=== PATIENT | male | born 1965 | race Asian ===

== ENCOUNTER 2022-08-25 20:06 | Inpatient (IN) | payer OTHER ==
[~2022-08-25] VITALS: Ht 167.6 cm; Wt 68.0 kg
[2022-08-25 22:00] VITALS: BP 128/77
[2022-08-25] MEDS: SENNOSIDES 8.6 MG TABLET PO SCH (22:15)
[2022-08-25] MEDS: DOCUSATE SODIUM 100 MG CAPSULE PO SCH (22:15)
[2022-08-25] MEDS: MIRTAZAPINE 15 MG TABLET PO SCH (23:00)
[2022-08-25] MEDS: LISINOPRIL 20 MG TABLET PO SCH (23:00)
[2022-08-25] MEDS: LABETALOL HCL 100 MG TABLET PO SCH (23:00)
[2022-08-25] MEDS: CloNIDine HCL 0.1 MG TABLET PO SCH (23:00)
[2022-08-25] MEDS: GABAPENTIN 100 MG CAPSULE PO SCH (23:00)
[2022-08-25] MEDS ORDERED: DEXTROSE 50%-WATER 25 GM/50 ML SYRINGE IVP PRN (23:30)
[2022-08-25] MEDS: INSULIN GLARGINE,HUM.REC.ANLOG 100 UNITS/ML SQ SCH (23:41)
[2022-08-25] MEDS: INSULIN LISPRO 100 UNITS/ML SQ PRN (23:42)
[2022-08-26] MEDS: HYDROCODONE/ACETAMINOPHEN 5-325 MG TABLET PO PRN ×2 (00:33→22:59)
[2022-08-26] MEDS: MELATONIN 5 MG TABLET PO PRN ×2 (00:36→21:41)
[2022-08-26 03:31] LABS: GLUCOMETER DEV NAME(LOC) 2WR.2B; GLUCOSE,POINT OF CARE 158 MG/DL (70-110)
[2022-08-26] MEDS ORDERED: INFLUENZA VIRUS VACCINE QVS 2022-23 (6MO+)/PF 60 MCG/0.5 ML SYRINGE IM. ONE (06:30)
[2022-08-26 07:15] LABS: GLUCOMETER DEV NAME(LOC) 2WR.2B; GLUCOSE,POINT OF CARE 128 MG/DL (70-110)
[2022-08-26] MEDS: MetFORMIN HCL 500 MG TABLET PO SCH ×2 (08:12→17:37)
[2022-08-26] MEDS: INSULIN LISPRO 100 UNITS/ML SQ SCH ×3 (08:15→17:36)
[2022-08-26] MEDS: INSULIN GLARGINE,HUM.REC.ANLOG 100 UNITS/ML SQ SCH ×2 (08:18→21:17)
[2022-08-26] MEDS: CloNIDine HCL 0.1 MG TABLET PO SCH ×2 (08:19→21:06)
[2022-08-26] MEDS: LISINOPRIL 20 MG TABLET PO SCH ×2 (08:19→21:06)
[2022-08-26] MEDS: DOCUSATE SODIUM 100 MG CAPSULE PO SCH ×2 (08:19→21:06)
[2022-08-26] MEDS: POLYETHYLENE GLYCOL 3350 17 GM PACKET PO SCH (08:19)
[2022-08-26] MEDS: GABAPENTIN 100 MG CAPSULE PO SCH ×3 (08:19→21:06)
[2022-08-26] MEDS: FOLIC ACID 1 MG TABLET PO SCH (08:25)
[2022-08-26] MEDS: NIFEdipine 90 MG ER TABLET PO SCH (08:25)
[2022-08-26] MEDS: LABETALOL HCL 100 MG TABLET PO SCH ×2 (08:26→21:19)
[2022-08-26] MEDS: ETHYL ALCOHOL 62% ANTISEPTIC NASAL SANITIZER 0.6 ML AMPUL NASAL SCH ×2 (08:26→21:07)
[2022-08-26] MEDS: THIAMINE 100 MG TABLET PO SCH (08:26)
[2022-08-26] MEDS ORDERED: LIDOCAINE 5% TRANSDERMAL PATCH TD SCH ×3 (09:00)
[2022-08-26] MEDS ORDERED: COLCHICINE 0.6 MG TABLET PO SCH (09:00)
[2022-08-26 09:08] VITALS: BP 116/74
[2022-08-26 09:11] LABS: BASOPHILS % (AUTO) 0.8 % (0.0-2.0); EOSINOPHILS % (AUTO) 2.4 % (1.0-6.0); HEMATOCRIT 34.2 % (41-53); HEMOGLOBIN 10.3 g/dL (13.5-17.5); LYMPHOCYTES # (AUTO) 1.3 K/uL (1.0-4.8); LYMPHOCYTES % (AUTO) 18.3 % (22.0-44.0); MEAN CORPUSCULAR HEMOGLOBIN 21.3 pg (26.0-34.0); MEAN CORPUSCULAR HGB CONC 30.1 G/dL (31.0-37.0); MEAN CORPUSCULAR VOLUME 71 fL (80-100); MONOCYTES # (AUTO) 0.5 K/uL (0.1-1.0); MONOCYTES % (AUTO) 7.5 % (2.0-9.0); NEUTROPHILS # (AUTO) 4.9 K/uL (1.8-7.7); PLATELET COUNT (AUTO) 501 K/uL (150-450); RED BLOOD CELL COUNT(AUTO) 4.83 MIL/uL (4.50-5.90); RED CELL DISTRIBUTION WIDTH 15.7 % (11.5-14.5)
[2022-08-26 09:22] LABS: ALANINE AMINOTRANSFERASE 86 U/L (12-78); ALBUMIN 2.6 g/dL (3.4-5.0); ALKALINE PHOSPHATASE 176 U/L (46-116); ANION GAP 6 mmol/L (8-16); ASPARTATE AMINOTRANSFERASE 25 U/L (15-37); BILIRUBIN,TOTAL 0.2 mg/dL (0.1-1.0); CALCIUM, TOTAL 9.2 mg/dL (8.8-10.5); CARBON DIOXIDE 31 mmol/L (22-29); CHLORIDE 100 mmol/L (98-107); CREATININE 1.06 mg/dL (0.60-1.30); GLOMERULAR FILTR. RATE CALC > 60 mL/min (>60); GLUCOSE,RANDOM 253 mg/dL (70-110); POTASSIUM 4.3 mmol/L (3.5-5.1); SODIUM SERUM 137 mmol/L (136-145); TOTAL PROTEIN, SERUM 7.2 g/dL (6.4-8.2); UREA NITROGEN, BLOOD 28 mg/dL (7-18)
[2022-08-26] MEDS: FEBUXOSTAT 40 MG TABLET PO SCH (11:56)
[2022-08-26] MEDS: DICLOFENAC SODIUM 1% 100 GM GEL [2GM] TP SCH ×3 (12:06→21:18)
[2022-08-26] MEDS: INSULIN LISPRO 100 UNITS/ML SQ PRN (12:14)
[2022-08-26 14:56] LABS: GLUCOMETER DEV NAME(LOC) 2WR.2B; GLUCOSE,POINT OF CARE 142 MG/DL (70-110)
[2022-08-26] MEDS ORDERED: DICLOFENAC SODIUM 1% 100 GM GEL [2GM] TP SCH (16:00)
[2022-08-26] MEDS ORDERED: -LIDODERM PATCH NOTE- MISC SCH ×3 (21:00)
[2022-08-26 21:01] VITALS: BP 127/62
[2022-08-26] MEDS: COLCHICINE 0.6 MG TABLET PO SCH (21:06)
[2022-08-26] MEDS: SENNOSIDES 8.6 MG TABLET PO SCH (21:06)
[2022-08-26] MEDS: MIRTAZAPINE 15 MG TABLET PO SCH (21:06)
[2022-08-26 23:26] LABS: GLUCOMETER DEV NAME(LOC) 2WR.2B; GLUCOSE,POINT OF CARE 140 MG/DL (70-110)
[2022-08-27 05:16] LABS: GLUCOMETER DEV NAME(LOC) 2WR.1C; GLUCOSE,POINT OF CARE 121 MG/DL (70-110)
[2022-08-27 07:40] VITALS: BP 102/66
[2022-08-27 08:01] LABS: GLUCOMETER DEV NAME(LOC) 2WR.1C; GLUCOSE,POINT OF CARE 121 MG/DL (70-110)
[2022-08-27] MEDS: INSULIN LISPRO 100 UNITS/ML SQ SCH ×3 (08:03→17:28)
[2022-08-27] MEDS: MetFORMIN HCL 500 MG TABLET PO SCH ×2 (08:29→17:26)
[2022-08-27] MEDS: ETHYL ALCOHOL 62% ANTISEPTIC NASAL SANITIZER 0.6 ML AMPUL NASAL SCH ×2 (08:30→22:37)
[2022-08-27] MEDS: DOCUSATE SODIUM 100 MG CAPSULE PO SCH ×3 (08:31→20:26)
[2022-08-27] MEDS: COLCHICINE 0.6 MG TABLET PO SCH ×2 (08:31→20:27)
[2022-08-27] MEDS: FOLIC ACID 1 MG TABLET PO SCH (08:31)
[2022-08-27] MEDS: POLYETHYLENE GLYCOL 3350 17 GM PACKET PO SCH ×2 (08:32→08:39)
[2022-08-27] MEDS: THIAMINE 100 MG TABLET PO SCH (08:33)
[2022-08-27] MEDS: GABAPENTIN 100 MG CAPSULE PO SCH ×3 (08:33→20:27)
[2022-08-27] MEDS: FEBUXOSTAT 40 MG TABLET PO SCH (08:33)
[2022-08-27] MEDS: DICLOFENAC SODIUM 1% 100 GM GEL [2GM] TP SCH ×3 (08:34→20:31)
[2022-08-27] MEDS: NIFEdipine 90 MG ER TABLET PO SCH (08:39)
[2022-08-27] MEDS: CloNIDine HCL 0.1 MG TABLET PO SCH ×2 (09:00→20:26)
[2022-08-27] MEDS: LABETALOL HCL 100 MG TABLET PO SCH ×2 (09:00→20:27)
[2022-08-27] MEDS: INSULIN GLARGINE,HUM.REC.ANLOG 100 UNITS/ML SQ SCH ×2 (09:09→20:46)
[2022-08-27 10:05] VITALS: BP 90/57
[2022-08-27] MEDS ORDERED: COLCHICINE 0.6 MG TABLET PO ONE (10:45)
[2022-08-27 11:56] LABS: GLUCOMETER DEV NAME(LOC) 2WR.1C; GLUCOSE,POINT OF CARE 185 MG/DL (70-110)
[2022-08-27] MEDS: INSULIN LISPRO 100 UNITS/ML SQ PRN ×2 (12:24→17:29)
[2022-08-27] MEDS: FAMOTIDINE 20 MG TABLET PO SCH (17:01)
[2022-08-27] MEDS: HYDROCODONE/ACETAMINOPHEN 5-325 MG TABLET PO PRN ×2 (18:06→22:35)
[2022-08-27 20:19] VITALS: BP 123/65
[2022-08-27] MEDS: SENNOSIDES 8.6 MG TABLET PO SCH (20:26)
[2022-08-27] MEDS ORDERED: MIRTAZAPINE 15 MG TABLET PO SCH (21:00)
[2022-08-27 21:41] LABS: GLUCOMETER DEV NAME(LOC) 2WR.1C; GLUCOSE,POINT OF CARE 111 MG/DL (70-110)
[2022-08-28] MEDS: FAMOTIDINE 20 MG TABLET PO SCH ×2 (05:59→16:30)
[2022-08-28] MEDS: HYDROCODONE/ACETAMINOPHEN 5-325 MG TABLET PO PRN ×3 (05:59→16:47)
[2022-08-28 06:46] LABS: GLUCOMETER DEV NAME(LOC) 2WR.1C; GLUCOSE,POINT OF CARE 95 MG/DL (70-110)
[2022-08-28 06:55] LABS: ANION GAP 8 mmol/L (8-16); C-REACTIVE PROTEIN QUANT 0.88 mg/dL (0.00-0.30); CALCIUM, TOTAL 9.4 mg/dL (8.8-10.5); CARBON DIOXIDE 29 mmol/L (22-29); CHLORIDE 103 mmol/L (98-107); CREATININE 1.11 mg/dL (0.60-1.30); GLUCOSE,RANDOM 110 mg/dL (70-110); POTASSIUM 3.9 mmol/L (3.5-5.1); SODIUM SERUM 140 mmol/L (136-145); UREA NITROGEN, BLOOD 31 mg/dL (7-18)
[2022-08-28] MEDS: INSULIN LISPRO 100 UNITS/ML SQ SCH ×3 (07:00→17:36)
[2022-08-28 07:05] LABS: % IRON SATURATION 14.8 % (30-44); IRON, SERUM 47 mcg/dL (50-175); TOTAL IRON BINDING CAPACITY 317 mcg/dL (250-450)
[2022-08-28 07:20] LABS: GLOMERULAR FILTR. RATE CALC > 60 mL/min (>60)
[2022-08-28 08:00] VITALS: BP 127/70
[2022-08-28] MEDS: INSULIN GLARGINE,HUM.REC.ANLOG 100 UNITS/ML SQ SCH (09:19)
[2022-08-28] MEDS: MetFORMIN HCL 500 MG TABLET PO SCH ×2 (09:23→16:47)
[2022-08-28] MEDS: CloNIDine HCL 0.1 MG TABLET PO SCH ×2 (09:23→20:44)
[2022-08-28] MEDS: ETHYL ALCOHOL 62% ANTISEPTIC NASAL SANITIZER 0.6 ML AMPUL NASAL SCH ×2 (09:23→20:42)
[2022-08-28] MEDS: DOCUSATE SODIUM 100 MG CAPSULE PO SCH ×2 (09:24→20:27)
[2022-08-28] MEDS: POLYETHYLENE GLYCOL 3350 17 GM PACKET PO SCH (09:24)
[2022-08-28] MEDS: FOLIC ACID 1 MG TABLET PO SCH (09:24)
[2022-08-28] MEDS: COLCHICINE 0.6 MG TABLET PO SCH ×2 (09:24→20:42)
[2022-08-28] MEDS: LABETALOL HCL 100 MG TABLET PO SCH ×2 (09:25→20:43)
[2022-08-28] MEDS: FEBUXOSTAT 40 MG TABLET PO SCH (09:25)
[2022-08-28] MEDS: GABAPENTIN 100 MG CAPSULE PO SCH (09:25)
[2022-08-28] MEDS: NIFEdipine 90 MG ER TABLET PO SCH (09:25)
[2022-08-28] MEDS: DICLOFENAC SODIUM 1% 100 GM GEL [2GM] TP SCH ×3 (09:26→20:43)
[2022-08-28] MEDS: LISINOPRIL 20 MG TABLET PO SCH (09:26)
[2022-08-28] MEDS: THIAMINE 100 MG TABLET PO SCH (09:26)
[2022-08-28] MEDS: INSULIN LISPRO 100 UNITS/ML SQ PRN (12:46)
[2022-08-28 13:01] LABS: GLUCOMETER DEV NAME(LOC) 2WR.2B; GLUCOSE,POINT OF CARE 173 MG/DL (70-110)
[2022-08-28] MEDS: GABAPENTIN 300 MG CAPSULE PO SCH ×2 (16:29→20:42)
[2022-08-28] MEDS: FERROUS SULFATE 325 MG EC TABLET PO SCH (16:47)
[2022-08-28 17:16] LABS: GLUCOMETER DEV NAME(LOC) 2WR.2B; GLUCOSE,POINT OF CARE 113 MG/DL (70-110)
[2022-08-28] MEDS: SENNOSIDES 8.6 MG TABLET PO SCH (20:29)
[2022-08-28] MEDS: MIRTAZAPINE 15 MG TABLET PO SCH (20:43)
[2022-08-28 21:00] VITALS: BP 99/67
[2022-08-28] MEDS ORDERED: INSULIN GLARGINE,HUM.REC.ANLOG 100 UNITS/ML SQ SCH (21:00)
[2022-08-28 21:16] LABS: GLUCOMETER DEV NAME(LOC) 2WR.2B; GLUCOSE,POINT OF CARE 89 MG/DL (70-110)
[2022-08-28] MEDS ORDERED: INDO-16 PO (22:11)
[2022-08-28] MEDS ORDERED: METF-1211 PO (22:11)
[2022-08-28] MEDS ORDERED: ATOR40TA28 PO (22:11)
[2022-08-28] MEDS ORDERED: LISI-894 PO (22:11)
[2022-08-28] MEDS ORDERED: COLC0.6T73 PO (22:11)
[2022-08-28] MEDS ORDERED: AMLO-258 PO (22:11)
[2022-08-28] MEDS: MELATONIN 5 MG TABLET PO PRN (23:49)
[2022-08-29 06:05] VITALS: BP 128/86
[2022-08-29 06:21] LABS: GLUCOMETER DEV NAME(LOC) 2WR.2B; GLUCOSE,POINT OF CARE 95 MG/DL (70-110)
[2022-08-29] MEDS: INSULIN LISPRO 100 UNITS/ML SQ SCH ×3 (07:00→17:41)
[2022-08-29] MEDS: FAMOTIDINE 20 MG TABLET PO SCH ×2 (07:03→17:49)
[2022-08-29] MEDS: DOCUSATE SODIUM 100 MG CAPSULE PO SCH ×3 (09:00→20:29)
[2022-08-29] MEDS ORDERED: INSULIN GLARGINE,HUM.REC.ANLOG 100 UNITS/ML SQ SCH (09:00)
[2022-08-29] MEDS: POLYETHYLENE GLYCOL 3350 17 GM PACKET PO SCH ×2 (09:00→09:25)
[2022-08-29] MEDS: MetFORMIN HCL 500 MG TABLET PO SCH ×2 (09:17→17:43)
[2022-08-29] MEDS: FERROUS SULFATE 325 MG EC TABLET PO SCH ×2 (09:17→17:49)
[2022-08-29] MEDS: LISINOPRIL 20 MG TABLET PO SCH (09:18)
[2022-08-29] MEDS: ETHYL ALCOHOL 62% ANTISEPTIC NASAL SANITIZER 0.6 ML AMPUL NASAL SCH ×2 (09:18→20:28)
[2022-08-29] MEDS: CloNIDine HCL 0.1 MG TABLET PO SCH ×2 (09:18→20:28)
[2022-08-29] MEDS: GABAPENTIN 300 MG CAPSULE PO SCH ×3 (09:19→20:30)
[2022-08-29] MEDS: HYDROCODONE/ACETAMINOPHEN 5-325 MG TABLET PO PRN (09:23)
[2022-08-29] MEDS: FOLIC ACID 1 MG TABLET PO SCH (09:25)
[2022-08-29] MEDS: COLCHICINE 0.6 MG TABLET PO SCH ×2 (09:26→20:30)
[2022-08-29] MEDS: NIFEdipine 90 MG ER TABLET PO SCH (09:26)
[2022-08-29] MEDS: THIAMINE 100 MG TABLET PO SCH (09:26)
[2022-08-29] MEDS: FEBUXOSTAT 40 MG TABLET PO SCH (09:26)
[2022-08-29] MEDS: LABETALOL HCL 100 MG TABLET PO SCH ×2 (09:26→20:30)
[2022-08-29] MEDS: DICLOFENAC SODIUM 1% 100 GM GEL [2GM] TP SCH ×3 (09:27→20:28)
[2022-08-29 09:30] VITALS: BP 139/93
[2022-08-29] MEDS: INSULIN GLARGINE,HUM.REC.ANLOG 100 UNITS/ML SQ SCH (10:20)
[2022-08-29] MEDS: INSULIN LISPRO 100 UNITS/ML SQ PRN ×2 (12:49→17:41)
[2022-08-29 15:11] LABS: GLUCOMETER DEV NAME(LOC) 2WR.2B; GLUCOSE,POINT OF CARE 212 MG/DL (70-110)
[2022-08-29 18:32] LABS: GLUCOMETER DEV NAME(LOC) 2WR.2B; GLUCOSE,POINT OF CARE 177 MG/DL (70-110)
[2022-08-29 20:00] VITALS: BP 124/70
[2022-08-29] MEDS: SENNOSIDES 8.6 MG TABLET PO SCH (20:30)
[2022-08-29] MEDS: MIRTAZAPINE 15 MG TABLET PO SCH (20:30)
[2022-08-29 22:21] LABS: GLUCOMETER DEV NAME(LOC) 2WR.2B; GLUCOSE,POINT OF CARE 124 MG/DL (70-110)
[2022-08-30] MEDS: MELATONIN 5 MG TABLET PO PRN ×2 (00:14→23:35)
[2022-08-30] MEDS: HYDROCODONE/ACETAMINOPHEN 5-325 MG TABLET PO PRN ×2 (01:08→08:58)
[2022-08-30] MEDS: FAMOTIDINE 20 MG TABLET PO SCH ×2 (06:41→16:48)
[2022-08-30 07:11] LABS: GLUCOMETER DEV NAME(LOC) 2WR.2B; GLUCOSE,POINT OF CARE 123 MG/DL (70-110)
[2022-08-30 07:30] LABS: ALANINE AMINOTRANSFERASE 44 U/L (12-78); ALBUMIN 2.7 g/dL (3.4-5.0); ALKALINE PHOSPHATASE 152 U/L (46-116); ANION GAP 7 mmol/L (8-16); ASPARTATE AMINOTRANSFERASE 23 U/L (15-37); BILIRUBIN,TOTAL 0.2 mg/dL (0.1-1.0); CALCIUM, TOTAL 8.9 mg/dL (8.8-10.5); CARBON DIOXIDE 30 mmol/L (22-29); CHLORIDE 106 mmol/L (98-107); CREATININE 1.02 mg/dL (0.60-1.30); GLUCOSE,RANDOM 116 mg/dL (70-110); POTASSIUM 3.9 mmol/L (3.5-5.1); SODIUM SERUM 143 mmol/L (136-145); UREA NITROGEN, BLOOD 30 mg/dL (7-18)
[2022-08-30 07:31] LABS: GLOMERULAR FILTR. RATE CALC > 60 mL/min (>60)
[2022-08-30 08:00] VITALS: BP 120/80
[2022-08-30] MEDS: CloNIDine HCL 0.1 MG TABLET PO SCH ×2 (08:38→21:40)
[2022-08-30] MEDS: GABAPENTIN 300 MG CAPSULE PO SCH ×3 (08:38→21:41)
[2022-08-30] MEDS: MetFORMIN HCL 500 MG TABLET PO SCH ×2 (08:38→17:09)
[2022-08-30] MEDS: FERROUS SULFATE 325 MG EC TABLET PO SCH ×2 (08:38→17:09)
[2022-08-30] MEDS: LISINOPRIL 20 MG TABLET PO SCH (08:39)
[2022-08-30] MEDS: DICLOFENAC SODIUM 1% 100 GM GEL [2GM] TP SCH ×3 (08:39→21:40)
[2022-08-30] MEDS: DOCUSATE SODIUM 100 MG CAPSULE PO SCH ×2 (08:39→21:00)
[2022-08-30] MEDS: NIFEdipine 90 MG ER TABLET PO SCH (08:40)
[2022-08-30] MEDS: COLCHICINE 0.6 MG TABLET PO SCH ×2 (08:40→21:41)
[2022-08-30] MEDS: POLYETHYLENE GLYCOL 3350 17 GM PACKET PO SCH (08:40)
[2022-08-30] MEDS: FOLIC ACID 1 MG TABLET PO SCH (08:40)
[2022-08-30] MEDS: FEBUXOSTAT 40 MG TABLET PO SCH (08:41)
[2022-08-30] MEDS: LABETALOL HCL 100 MG TABLET PO SCH ×2 (08:41→21:42)
[2022-08-30] MEDS: THIAMINE 100 MG TABLET PO SCH (08:41)
[2022-08-30] MEDS: ETHYL ALCOHOL 62% ANTISEPTIC NASAL SANITIZER 0.6 ML AMPUL NASAL SCH ×2 (08:43→21:40)
[2022-08-30] MEDS: INSULIN GLARGINE,HUM.REC.ANLOG 100 UNITS/ML SQ SCH (08:44)
[2022-08-30] MEDS: INSULIN LISPRO 100 UNITS/ML SQ SCH ×3 (08:46→17:35)
[2022-08-30 09:00] VITALS: BP 120/80
[2022-08-30 12:41] LABS: GLUCOMETER DEV NAME(LOC) 2WR.1C; GLUCOSE,POINT OF CARE 123 MG/DL (70-110)
[2022-08-30] MEDS: INSULIN LISPRO 100 UNITS/ML SQ PRN (17:36)
[2022-08-30 17:41] LABS: GLUCOMETER DEV NAME(LOC) 2WR.1C; GLUCOSE,POINT OF CARE 141 MG/DL (70-110)
[2022-08-30 21:00] VITALS: BP 110/64
[2022-08-30] MEDS: SENNOSIDES 8.6 MG TABLET PO SCH (21:00)
[2022-08-30] MEDS: MIRTAZAPINE 15 MG TABLET PO SCH (21:40)
[2022-08-30 23:11] LABS: GLUCOMETER DEV NAME(LOC) 2WR.1C; GLUCOSE,POINT OF CARE 126 MG/DL (70-110)
[2022-08-31] MEDS: HYDROCODONE/ACETAMINOPHEN 5-325 MG TABLET PO PRN ×3 (00:27→20:49)
[2022-08-31] MEDS: FAMOTIDINE 20 MG TABLET PO SCH ×2 (06:38→15:58)
[2022-08-31 06:56] LABS: GLUCOMETER DEV NAME(LOC) 2WR.2B; GLUCOSE,POINT OF CARE 111 MG/DL (70-110)
[2022-08-31] MEDS: MetFORMIN HCL 500 MG TABLET PO SCH ×2 (07:59→17:36)
[2022-08-31] MEDS: FERROUS SULFATE 325 MG EC TABLET PO SCH ×2 (07:59→17:41)
[2022-08-31] MEDS: INSULIN LISPRO 100 UNITS/ML SQ SCH ×3 (08:03→17:37)
[2022-08-31] MEDS: GABAPENTIN 300 MG CAPSULE PO SCH ×3 (08:29→20:45)
[2022-08-31] MEDS: CloNIDine HCL 0.1 MG TABLET PO SCH ×2 (08:29→20:45)
[2022-08-31] MEDS: ETHYL ALCOHOL 62% ANTISEPTIC NASAL SANITIZER 0.6 ML AMPUL NASAL SCH ×2 (08:29→20:45)
[2022-08-31] MEDS: LISINOPRIL 20 MG TABLET PO SCH (08:34)
[2022-08-31] MEDS: FEBUXOSTAT 40 MG TABLET PO SCH (08:34)
[2022-08-31] MEDS: THIAMINE 100 MG TABLET PO SCH (08:34)
[2022-08-31] MEDS: FOLIC ACID 1 MG TABLET PO SCH (08:35)
[2022-08-31] MEDS: DOCUSATE SODIUM 100 MG CAPSULE PO SCH ×2 (08:35→20:45)
[2022-08-31] MEDS: DICLOFENAC SODIUM 1% 100 GM GEL [2GM] TP SCH ×3 (08:35→20:45)
[2022-08-31] MEDS: LABETALOL HCL 100 MG TABLET PO SCH ×2 (08:35→20:46)
[2022-08-31] MEDS: NIFEdipine 90 MG ER TABLET PO SCH (08:35)
[2022-08-31] MEDS: COLCHICINE 0.6 MG TABLET PO SCH ×2 (08:36→20:46)
[2022-08-31] MEDS: POLYETHYLENE GLYCOL 3350 17 GM PACKET PO SCH (08:43)
[2022-08-31] MEDS: INSULIN GLARGINE,HUM.REC.ANLOG 100 UNITS/ML SQ SCH (08:48)
[2022-08-31 09:40] VITALS: BP 127/83
[2022-08-31 13:15] LABS: GLUCOMETER DEV NAME(LOC) 2WR.1C; GLUCOSE,POINT OF CARE 145 MG/DL (70-110)
[2022-08-31] MEDS: INSULIN LISPRO 100 UNITS/ML SQ PRN ×2 (13:42→21:03)
[2022-08-31] MEDS: ACETAMINOPHEN 325 MG TABLET PO PRN (15:59)
[2022-08-31 19:41] LABS: GLUCOMETER DEV NAME(LOC) 2WR.1C; GLUCOSE,POINT OF CARE 112 MG/DL (70-110)
[2022-08-31 20:41] VITALS: BP 126/73
[2022-08-31] MEDS: SENNOSIDES 8.6 MG TABLET PO SCH (20:45)
[2022-08-31] MEDS: MIRTAZAPINE 15 MG TABLET PO SCH (20:46)
[2022-08-31 21:46] LABS: GLUCOMETER DEV NAME(LOC) 2WR.2B; GLUCOSE,POINT OF CARE 198 MG/DL (70-110)
[2022-09-01] MEDS: ACETAMINOPHEN 325 MG TABLET PO PRN ×3 (01:33→15:35)
[2022-09-01] MEDS: HYDROCODONE/ACETAMINOPHEN 5-325 MG TABLET PO PRN (04:46)
[2022-09-01] MEDS: FAMOTIDINE 20 MG TABLET PO SCH ×2 (06:13→15:35)
[2022-09-01 06:56] LABS: GLUCOMETER DEV NAME(LOC) 2WR.2B; GLUCOSE,POINT OF CARE 113 MG/DL (70-110)
[2022-09-01 07:55] LABS: BASOPHILS % (AUTO) 0.8 % (0.0-2.0); EOSINOPHILS % (AUTO) 3.3 % (1.0-6.0); HEMATOCRIT 32.1 % (41-53); LYMPHOCYTES # (AUTO) 1.2 K/uL (1.0-4.8); LYMPHOCYTES % (AUTO) 26.6 % (22.0-44.0); MEAN CORPUSCULAR HEMOGLOBIN 22.1 pg (26.0-34.0); MEAN CORPUSCULAR HGB CONC 31.2 G/dL (31.0-37.0); MEAN CORPUSCULAR VOLUME 71 fL (80-100); MONOCYTES # (AUTO) 0.4 K/uL (0.1-1.0); MONOCYTES % (AUTO) 7.7 % (2.0-9.0); NEUTROPHILS # (AUTO) 2.8 K/uL (1.8-7.7); NEUTROPHILS % (AUTO) 61.6 % (40.0-70.0); PLATELET COUNT (AUTO) 376 K/uL (150-450); RED BLOOD CELL COUNT(AUTO) 4.54 MIL/uL (4.50-5.90); RED CELL DISTRIBUTION WIDTH 15.4 % (11.5-14.5)
[2022-09-01 08:01] LABS: ANION GAP 7 mmol/L (8-16); CALCIUM, TOTAL 8.8 mg/dL (8.8-10.5); CARBON DIOXIDE 30 mmol/L (22-29); CHLORIDE 108 mmol/L (98-107); CREATININE 0.95 mg/dL (0.60-1.30); GLOMERULAR FILTR. RATE CALC > 60 mL/min (>60); GLUCOSE,RANDOM 114 mg/dL (70-110); POTASSIUM 3.8 mmol/L (3.5-5.1); SODIUM SERUM 145 mmol/L (136-145); UREA NITROGEN, BLOOD 24 mg/dL (7-18)
[2022-09-01] MEDS: FERROUS SULFATE 325 MG EC TABLET PO SCH ×2 (08:53→17:35)
[2022-09-01] MEDS: INSULIN LISPRO 100 UNITS/ML SQ SCH ×3 (08:54→17:39)
[2022-09-01] MEDS: INSULIN GLARGINE,HUM.REC.ANLOG 100 UNITS/ML SQ SCH (08:54)
[2022-09-01] MEDS: ETHYL ALCOHOL 62% ANTISEPTIC NASAL SANITIZER 0.6 ML AMPUL NASAL SCH ×2 (08:57→21:13)
[2022-09-01] MEDS: DOCUSATE SODIUM 100 MG CAPSULE PO SCH ×2 (08:58→21:00)
[2022-09-01] MEDS: GABAPENTIN 300 MG CAPSULE PO SCH ×3 (08:59→21:14)
[2022-09-01] MEDS: CloNIDine HCL 0.1 MG TABLET PO SCH ×2 (09:00→21:14)
[2022-09-01] MEDS: POLYETHYLENE GLYCOL 3350 17 GM PACKET PO SCH (09:00)
[2022-09-01] MEDS: MetFORMIN HCL 500 MG TABLET PO SCH ×2 (09:00→17:36)
[2022-09-01] MEDS: LISINOPRIL 20 MG TABLET PO SCH (09:00)
[2022-09-01] MEDS: COLCHICINE 0.6 MG TABLET PO SCH ×2 (09:01→21:15)
[2022-09-01] MEDS: FOLIC ACID 1 MG TABLET PO SCH (09:01)
[2022-09-01] MEDS: THIAMINE 100 MG TABLET PO SCH (09:02)
[2022-09-01] MEDS: LABETALOL HCL 100 MG TABLET PO SCH ×2 (09:02→21:14)
[2022-09-01] MEDS: FEBUXOSTAT 40 MG TABLET PO SCH (09:02)
[2022-09-01] MEDS: NIFEdipine 60 MG ER TABLET PO SCH (09:02)
[2022-09-01] MEDS: DICLOFENAC SODIUM 1% 100 GM GEL [2GM] TP SCH ×3 (09:02→21:14)
[2022-09-01 17:16] LABS: GLUCOMETER DEV NAME(LOC) 2WR.1C; GLUCOSE,POINT OF CARE 127 MG/DL (70-110)
[2022-09-01] MEDS: INSULIN LISPRO 100 UNITS/ML SQ PRN ×2 (17:39→21:20)
[2022-09-01 17:41] LABS: GLUCOMETER DEV NAME(LOC) 2WR.2B; GLUCOSE,POINT OF CARE 181 MG/DL (70-110)
[2022-09-01] MEDS: SENNOSIDES 8.6 MG TABLET PO SCH (21:00)
[2022-09-01 21:08] VITALS: BP 126/80
[2022-09-01] MEDS: MIRTAZAPINE 15 MG TABLET PO SCH (21:14)
[2022-09-01 23:26] LABS: GLUCOMETER DEV NAME(LOC) 2WR.2B; GLUCOSE,POINT OF CARE 156 MG/DL (70-110)
[2022-09-02] MEDS: MELATONIN 5 MG TABLET PO PRN ×2 (01:04→21:27)
[2022-09-02] MEDS: FAMOTIDINE 20 MG TABLET PO SCH ×2 (06:47→16:41)
[2022-09-02] MEDS: INSULIN LISPRO 100 UNITS/ML SQ SCH ×3 (07:00→17:03)
[2022-09-02 07:21] LABS: CHOL/HDL RATIO 4.1 (4.2-7.3)
[2022-09-02 08:00] VITALS: BP 150/89
[2022-09-02] MEDS: FERROUS SULFATE 325 MG EC TABLET PO SCH ×2 (08:25→16:41)
[2022-09-02] MEDS: INSULIN GLARGINE,HUM.REC.ANLOG 100 UNITS/ML SQ SCH (08:26)
[2022-09-02] MEDS: DOCUSATE SODIUM 100 MG CAPSULE PO SCH ×2 (08:27→21:14)
[2022-09-02] MEDS: MetFORMIN HCL 500 MG TABLET PO SCH ×2 (08:27→16:41)
[2022-09-02] MEDS: ETHYL ALCOHOL 62% ANTISEPTIC NASAL SANITIZER 0.6 ML AMPUL NASAL SCH ×2 (08:27→21:13)
[2022-09-02] MEDS: CloNIDine HCL 0.1 MG TABLET PO SCH ×2 (08:27→21:14)
[2022-09-02] MEDS: GABAPENTIN 300 MG CAPSULE PO SCH ×3 (08:28→21:14)
[2022-09-02] MEDS: COLCHICINE 0.6 MG TABLET PO SCH ×2 (08:28→21:14)
[2022-09-02] MEDS: FOLIC ACID 1 MG TABLET PO SCH (08:28)
[2022-09-02] MEDS: LABETALOL HCL 100 MG TABLET PO SCH ×2 (08:28→21:14)
[2022-09-02] MEDS: POLYETHYLENE GLYCOL 3350 17 GM PACKET PO SCH ×2 (08:28→08:42)
[2022-09-02] MEDS: NIFEdipine 60 MG ER TABLET PO SCH (08:28)
[2022-09-02] MEDS: FEBUXOSTAT 40 MG TABLET PO SCH (08:28)
[2022-09-02] MEDS: THIAMINE 100 MG TABLET PO SCH (08:29)
[2022-09-02] MEDS: LISINOPRIL 20 MG TABLET PO SCH (08:29)
[2022-09-02] MEDS: DICLOFENAC SODIUM 1% 100 GM GEL [2GM] TP SCH ×3 (08:30→21:14)
[2022-09-02] MEDS: HYDROCODONE/ACETAMINOPHEN 5-325 MG TABLET PO PRN ×2 (08:30→16:49)
[2022-09-02 08:46] LABS: GLUCOMETER DEV NAME(LOC) 2WR.1C; GLUCOSE,POINT OF CARE 97 MG/DL (70-110)
[2022-09-02 09:10] VITALS: BP 136/84
[2022-09-02 12:11] LABS: GLUCOMETER DEV NAME(LOC) 2WR.1C; GLUCOSE,POINT OF CARE 177 MG/DL (70-110)
[2022-09-02] MEDS: INSULIN LISPRO 100 UNITS/ML SQ PRN ×3 (12:41→21:24)
[2022-09-02 17:21] LABS: GLUCOMETER DEV NAME(LOC) 2WR.1C; GLUCOSE,POINT OF CARE 196 MG/DL (70-110)
[2022-09-02 21:11] VITALS: BP 115/76
[2022-09-02] MEDS: ATORVASTATIN CALCIUM 20 MG TABLET PO SCH (21:14)
[2022-09-02] MEDS: MIRTAZAPINE 15 MG TABLET PO SCH (21:14)
[2022-09-02] MEDS: SENNOSIDES 8.6 MG TABLET PO SCH (21:14)
[2022-09-03 05:21] LABS: GLUCOMETER DEV NAME(LOC) 2WR.2B; GLUCOSE,POINT OF CARE 151 MG/DL (70-110)
[2022-09-03] MEDS: FAMOTIDINE 20 MG TABLET PO SCH ×2 (06:31→17:01)
[2022-09-03 07:02] LABS: GLUCOMETER DEV NAME(LOC) 2WR.2B; GLUCOSE,POINT OF CARE 126 MG/DL (70-110)
[2022-09-03] MEDS: INSULIN LISPRO 100 UNITS/ML SQ SCH ×3 (07:06→17:07)
[2022-09-03] MEDS: ETHYL ALCOHOL 62% ANTISEPTIC NASAL SANITIZER 0.6 ML AMPUL NASAL SCH ×2 (08:00→21:35)
[2022-09-03] MEDS: MetFORMIN HCL 500 MG TABLET PO SCH ×2 (08:00→17:01)
[2022-09-03] MEDS: CloNIDine HCL 0.1 MG TABLET PO SCH ×2 (08:00→21:36)
[2022-09-03] MEDS: FERROUS SULFATE 325 MG EC TABLET PO SCH ×2 (08:01→17:02)
[2022-09-03] MEDS: GABAPENTIN 300 MG CAPSULE PO SCH ×3 (08:01→21:37)
[2022-09-03] MEDS: DOCUSATE SODIUM 100 MG CAPSULE PO SCH ×2 (08:01→21:36)
[2022-09-03] MEDS: LISINOPRIL 20 MG TABLET PO SCH (08:01)
[2022-09-03] MEDS: FEBUXOSTAT 40 MG TABLET PO SCH (08:04)
[2022-09-03] MEDS: NIFEdipine 60 MG ER TABLET PO SCH (08:05)
[2022-09-03] MEDS: FOLIC ACID 1 MG TABLET PO SCH (08:05)
[2022-09-03] MEDS: LABETALOL HCL 100 MG TABLET PO SCH ×2 (08:06→21:35)
[2022-09-03] MEDS: THIAMINE 100 MG TABLET PO SCH (08:06)
[2022-09-03] MEDS: COLCHICINE 0.6 MG TABLET PO SCH ×2 (08:07→21:35)
[2022-09-03] MEDS: POLYETHYLENE GLYCOL 3350 17 GM PACKET PO SCH (08:09)
[2022-09-03] MEDS: INSULIN GLARGINE,HUM.REC.ANLOG 100 UNITS/ML SQ SCH (08:11)
[2022-09-03] MEDS: DICLOFENAC SODIUM 1% 100 GM GEL [2GM] TP SCH ×3 (08:17→21:38)
[2022-09-03 08:40] VITALS: BP 142/89
[2022-09-03] MEDS: INSULIN LISPRO 100 UNITS/ML SQ PRN ×2 (11:59→17:07)
[2022-09-03 12:22] LABS: GLUCOMETER DEV NAME(LOC) 2WR.1C; GLUCOSE,POINT OF CARE 149 MG/DL (70-110)
[2022-09-03 17:26] LABS: GLUCOMETER DEV NAME(LOC) 2WR.1C; GLUCOSE,POINT OF CARE 197 MG/DL (70-110)
[2022-09-03 21:00] VITALS: BP 154/93
[2022-09-03] MEDS: ATORVASTATIN CALCIUM 20 MG TABLET PO SCH (21:36)
[2022-09-03] MEDS: MIRTAZAPINE 15 MG TABLET PO SCH (21:36)
[2022-09-03] MEDS: SENNOSIDES 8.6 MG TABLET PO SCH (21:37)
[2022-09-03] MEDS: HYDROCODONE/ACETAMINOPHEN 5-325 MG TABLET PO PRN (23:01)
[2022-09-04] MEDS: ACETAMINOPHEN 325 MG TABLET PO PRN ×2 (00:19→16:17)
[2022-09-04] MEDS: MELATONIN 5 MG TABLET PO PRN ×2 (00:19→21:00)
[2022-09-04 00:41] LABS: GLUCOMETER DEV NAME(LOC) 2WR.2B; GLUCOSE,POINT OF CARE 119 MG/DL (70-110)
[2022-09-04] MEDS: FAMOTIDINE 20 MG TABLET PO SCH ×2 (05:58→16:17)
[2022-09-04 06:41] LABS: GLUCOMETER DEV NAME(LOC) 2WR.2B; GLUCOSE,POINT OF CARE 157 MG/DL (70-110)
[2022-09-04 08:00] VITALS: BP 129/76
[2022-09-04] MEDS: POLYETHYLENE GLYCOL 3350 17 GM PACKET PO SCH (09:00)
[2022-09-04] MEDS: DOCUSATE SODIUM 100 MG CAPSULE PO SCH ×2 (09:00→20:46)
[2022-09-04] MEDS: MetFORMIN HCL 500 MG TABLET PO SCH ×2 (09:03→17:40)
[2022-09-04] MEDS: FERROUS SULFATE 325 MG EC TABLET PO SCH ×2 (09:03→17:40)
[2022-09-04] MEDS: ETHYL ALCOHOL 62% ANTISEPTIC NASAL SANITIZER 0.6 ML AMPUL NASAL SCH ×2 (09:03→20:45)
[2022-09-04] MEDS: CloNIDine HCL 0.1 MG TABLET PO SCH ×2 (09:03→20:46)
[2022-09-04] MEDS: LABETALOL HCL 100 MG TABLET PO SCH ×2 (09:05→20:52)
[2022-09-04] MEDS: FOLIC ACID 1 MG TABLET PO SCH (09:05)
[2022-09-04] MEDS: NIFEdipine 60 MG ER TABLET PO SCH (09:05)
[2022-09-04] MEDS: GABAPENTIN 300 MG CAPSULE PO SCH ×3 (09:05→20:47)
[2022-09-04] MEDS: COLCHICINE 0.6 MG TABLET PO SCH ×2 (09:05→20:52)
[2022-09-04] MEDS: THIAMINE 100 MG TABLET PO SCH (09:06)
[2022-09-04] MEDS: HYDROCODONE/ACETAMINOPHEN 5-325 MG TABLET PO PRN ×2 (09:06→19:43)
[2022-09-04] MEDS: FEBUXOSTAT 40 MG TABLET PO SCH (09:06)
[2022-09-04] MEDS: LISINOPRIL 20 MG TABLET PO SCH (09:06)
[2022-09-04] MEDS: INSULIN GLARGINE,HUM.REC.ANLOG 100 UNITS/ML SQ SCH (09:11)
[2022-09-04] MEDS: INSULIN LISPRO 100 UNITS/ML SQ SCH ×3 (09:12→17:38)
[2022-09-04] MEDS: INSULIN LISPRO 100 UNITS/ML SQ PRN ×4 (09:12→21:42)
[2022-09-04] MEDS: DICLOFENAC SODIUM 1% 100 GM GEL [2GM] TP SCH ×3 (09:13→20:52)
[2022-09-04 13:26] LABS: GLUCOMETER DEV NAME(LOC) 2WR.1C; GLUCOSE,POINT OF CARE 153 MG/DL (70-110)
[2022-09-04 17:16] LABS: GLUCOMETER DEV NAME(LOC) 2WR.1C; GLUCOSE,POINT OF CARE 157 MG/DL (70-110)
[2022-09-04] MEDS: ATORVASTATIN CALCIUM 20 MG TABLET PO SCH (20:47)
[2022-09-04] MEDS: MIRTAZAPINE 15 MG TABLET PO SCH (20:47)
[2022-09-04] MEDS: SENNOSIDES 8.6 MG TABLET PO SCH (20:47)
[2022-09-04 21:00] VITALS: BP 146/94
[2022-09-04 22:27] LABS: GLUCOMETER DEV NAME(LOC) 2WR.2B; GLUCOSE,POINT OF CARE 255 MG/DL (70-110)
[2022-09-05] MEDS: ACETAMINOPHEN 325 MG TABLET PO PRN (05:54)
[2022-09-05 06:46] LABS: GLUCOMETER DEV NAME(LOC) 2WR.2B; GLUCOSE,POINT OF CARE 174 MG/DL (70-110)
[2022-09-05] MEDS: FAMOTIDINE 20 MG TABLET PO SCH ×2 (07:09→17:01)
[2022-09-05] MEDS: GABAPENTIN 300 MG CAPSULE PO SCH ×3 (08:41→20:40)
[2022-09-05] MEDS: CloNIDine HCL 0.1 MG TABLET PO SCH ×2 (08:41→20:39)
[2022-09-05] MEDS: FERROUS SULFATE 325 MG EC TABLET PO SCH ×2 (08:41→17:57)
[2022-09-05] MEDS: MetFORMIN HCL 500 MG TABLET PO SCH ×2 (08:41→17:57)
[2022-09-05] MEDS: DOCUSATE SODIUM 100 MG CAPSULE PO SCH ×2 (08:42→20:39)
[2022-09-05] MEDS: LISINOPRIL 20 MG TABLET PO SCH (08:42)
[2022-09-05] MEDS: COLCHICINE 0.6 MG TABLET PO SCH ×2 (08:44→20:40)
[2022-09-05] MEDS: NIFEdipine 60 MG ER TABLET PO SCH (08:44)
[2022-09-05] MEDS: FOLIC ACID 1 MG TABLET PO SCH (08:45)
[2022-09-05] MEDS: POLYETHYLENE GLYCOL 3350 17 GM PACKET PO SCH (08:47)
[2022-09-05] MEDS: HYDROCODONE/ACETAMINOPHEN 5-325 MG TABLET PO PRN ×2 (08:47→23:35)
[2022-09-05] MEDS: LABETALOL HCL 100 MG TABLET PO SCH ×2 (08:48→20:49)
[2022-09-05] MEDS: DICLOFENAC SODIUM 1% 100 GM GEL [2GM] TP SCH ×3 (08:48→20:45)
[2022-09-05] MEDS: THIAMINE 100 MG TABLET PO SCH (08:48)
[2022-09-05] MEDS: FEBUXOSTAT 40 MG TABLET PO SCH (08:48)
[2022-09-05] MEDS: INSULIN GLARGINE,HUM.REC.ANLOG 100 UNITS/ML SQ SCH (08:56)
[2022-09-05] MEDS: INSULIN LISPRO 100 UNITS/ML SQ SCH ×3 (08:58→17:59)
[2022-09-05] MEDS: INSULIN LISPRO 100 UNITS/ML SQ PRN ×4 (08:59→21:32)
[2022-09-05] MEDS: ETHYL ALCOHOL 62% ANTISEPTIC NASAL SANITIZER 0.6 ML AMPUL NASAL SCH ×2 (09:01→20:39)
[2022-09-05 09:05] VITALS: BP 149/100
[2022-09-05] MEDS ORDERED: TRIAMCINOLONE ACETONIDE 40 MG/ML VIAL IM ONE (12:00)
[2022-09-05] MEDS ORDERED: LIDOCAINE 1% 10 ML VIAL IM ONE (12:00)
[2022-09-05] MEDS ORDERED: ETHYL CHLORIDE 116 ML SPRAY TP ONE (12:15)
[2022-09-05 14:31] LABS: GLUCOMETER DEV NAME(LOC) 2WR.2B; GLUCOSE,POINT OF CARE 173 MG/DL (70-110)
[2022-09-05 19:06] LABS: GLUCOMETER DEV NAME(LOC) 2WR.2B; GLUCOSE,POINT OF CARE 186 MG/DL (70-110)
[2022-09-05] MEDS: ATORVASTATIN CALCIUM 20 MG TABLET PO SCH (20:40)
[2022-09-05] MEDS: MIRTAZAPINE 15 MG TABLET PO SCH (20:44)
[2022-09-05] MEDS: SENNOSIDES 8.6 MG TABLET PO SCH (20:45)
[2022-09-05 21:00] VITALS: BP 131/76
[2022-09-05 21:51] LABS: GLUCOMETER DEV NAME(LOC) 2WR.2B; GLUCOSE,POINT OF CARE 326 MG/DL (70-110)
[2022-09-05] MEDS: MELATONIN 5 MG TABLET PO PRN (22:50)
[2022-09-05 23:11] LABS: GLUCOMETER DEV NAME(LOC) 2WR.2B; GLUCOSE,POINT OF CARE 288 MG/DL (70-110)
[2022-09-06] MEDS: FAMOTIDINE 20 MG TABLET PO SCH ×2 (06:19→16:01)
[2022-09-06 07:01] LABS: GLUCOMETER DEV NAME(LOC) 2WR.2B; GLUCOSE,POINT OF CARE 223 MG/DL (70-110)
[2022-09-06] MEDS: NIFEdipine 60 MG ER TABLET PO SCH (08:33)
[2022-09-06] MEDS: MetFORMIN HCL 500 MG TABLET PO SCH ×2 (08:33→16:00)
[2022-09-06] MEDS: LABETALOL HCL 100 MG TABLET PO SCH ×2 (08:34→20:32)
[2022-09-06] MEDS: DOCUSATE SODIUM 100 MG CAPSULE PO SCH ×2 (08:34→20:33)
[2022-09-06] MEDS: FEBUXOSTAT 40 MG TABLET PO SCH (08:34)
[2022-09-06] MEDS: INSULIN LISPRO 100 UNITS/ML SQ SCH ×3 (08:36→16:46)
[2022-09-06] MEDS: INSULIN GLARGINE,HUM.REC.ANLOG 100 UNITS/ML SQ SCH (08:37)
[2022-09-06] MEDS: INSULIN LISPRO 100 UNITS/ML SQ PRN ×4 (08:37→20:36)
[2022-09-06] MEDS: ETHYL ALCOHOL 62% ANTISEPTIC NASAL SANITIZER 0.6 ML AMPUL NASAL SCH ×2 (08:39→20:33)
[2022-09-06] MEDS: COLCHICINE 0.6 MG TABLET PO SCH ×2 (08:40→20:32)
[2022-09-06] MEDS: FERROUS SULFATE 325 MG EC TABLET PO SCH ×2 (08:40→16:01)
[2022-09-06] MEDS: THIAMINE 100 MG TABLET PO SCH (08:40)
[2022-09-06] MEDS: LISINOPRIL 20 MG TABLET PO SCH (08:41)
[2022-09-06] MEDS: GABAPENTIN 300 MG CAPSULE PO SCH ×3 (08:41→20:33)
[2022-09-06] MEDS: FOLIC ACID 1 MG TABLET PO SCH (08:41)
[2022-09-06] MEDS: DICLOFENAC SODIUM 1% 100 GM GEL [2GM] TP SCH ×4 (08:42→20:47)
[2022-09-06] MEDS: CloNIDine HCL 0.1 MG TABLET PO SCH ×2 (08:42→20:32)
[2022-09-06] MEDS: POLYETHYLENE GLYCOL 3350 17 GM PACKET PO SCH (08:43)
[2022-09-06 09:09] VITALS: BP 136/74
[2022-09-06 11:56] LABS: GLUCOMETER DEV NAME(LOC) 2WR.1C; GLUCOSE,POINT OF CARE 290 MG/DL (70-110)
[2022-09-06 16:56] LABS: GLUCOMETER DEV NAME(LOC) 2WR.1C; GLUCOSE,POINT OF CARE 263 MG/DL (70-110)
[2022-09-06] MEDS: SENNOSIDES 8.6 MG TABLET PO SCH (20:32)
[2022-09-06] MEDS: MIRTAZAPINE 15 MG TABLET PO SCH (20:32)
[2022-09-06] MEDS: ATORVASTATIN CALCIUM 20 MG TABLET PO SCH (20:32)
[2022-09-06 21:17] VITALS: BP 149/83
[2022-09-06 21:32] LABS: GLUCOMETER DEV NAME(LOC) 2WR.2B; GLUCOSE,POINT OF CARE 325 MG/DL (70-110)
[2022-09-06] MEDS: MELATONIN 5 MG TABLET PO PRN (22:38)
[2022-09-07] MEDS: FAMOTIDINE 20 MG TABLET PO SCH ×2 (06:40→17:20)
[2022-09-07 07:57] LABS: GLUCOMETER DEV NAME(LOC) 2WR.1C; GLUCOSE,POINT OF CARE 219 MG/DL (70-110)
[2022-09-07] MEDS: INSULIN LISPRO 100 UNITS/ML SQ SCH ×3 (08:29→17:23)
[2022-09-07] MEDS: INSULIN LISPRO 100 UNITS/ML SQ PRN ×4 (08:30→21:07)
[2022-09-07] MEDS: FERROUS SULFATE 325 MG EC TABLET PO SCH ×2 (08:31→17:21)
[2022-09-07] MEDS: MetFORMIN HCL 500 MG TABLET PO SCH ×2 (08:31→17:20)
[2022-09-07] MEDS: POLYETHYLENE GLYCOL 3350 17 GM PACKET PO SCH ×2 (09:00→10:36)
[2022-09-07] MEDS: LISINOPRIL 20 MG TABLET PO SCH (10:32)
[2022-09-07] MEDS: GABAPENTIN 300 MG CAPSULE PO SCH ×3 (10:32→20:59)
[2022-09-07] MEDS: DOCUSATE SODIUM 100 MG CAPSULE PO SCH ×2 (10:32→20:10)
[2022-09-07] MEDS: CloNIDine HCL 0.1 MG TABLET PO SCH ×2 (10:32→21:00)
[2022-09-07] MEDS: FOLIC ACID 1 MG TABLET PO SCH (10:35)
[2022-09-07] MEDS: THIAMINE 100 MG TABLET PO SCH (10:35)
[2022-09-07] MEDS: FEBUXOSTAT 40 MG TABLET PO SCH (10:35)
[2022-09-07] MEDS: NIFEdipine 60 MG ER TABLET PO SCH (10:36)
[2022-09-07] MEDS: LABETALOL HCL 100 MG TABLET PO SCH ×2 (10:36→21:00)
[2022-09-07] MEDS: DICLOFENAC SODIUM 1% 100 GM GEL [2GM] TP SCH ×3 (10:36→21:00)
[2022-09-07] MEDS: ETHYL ALCOHOL 62% ANTISEPTIC NASAL SANITIZER 0.6 ML AMPUL NASAL SCH ×2 (10:36→21:12)
[2022-09-07] MEDS: COLCHICINE 0.6 MG TABLET PO SCH ×2 (10:36→21:00)
[2022-09-07 10:42] VITALS: BP 147/86
[2022-09-07] MEDS: INSULIN GLARGINE,HUM.REC.ANLOG 100 UNITS/ML SQ SCH (10:54)
[2022-09-07 12:46] LABS: GLUCOMETER DEV NAME(LOC) 2WR.2B; GLUCOSE,POINT OF CARE 202 MG/DL (70-110)
[2022-09-07 17:51] LABS: GLUCOMETER DEV NAME(LOC) 2WR.2B; GLUCOSE,POINT OF CARE 228 MG/DL (70-110)
[2022-09-07] MEDS: SENNOSIDES 8.6 MG TABLET PO SCH (20:10)
[2022-09-07 20:11] VITALS: BP 137/82
[2022-09-07] MEDS: MIRTAZAPINE 15 MG TABLET PO SCH (21:00)
[2022-09-07] MEDS: ATORVASTATIN CALCIUM 20 MG TABLET PO SCH (21:00)
[2022-09-07] MEDS: ENOXAPARIN SODIUM 30 MG/0.3 ML PF SYRINGE SQ SCH (21:01)
[2022-09-07 22:16] LABS: GLUCOMETER DEV NAME(LOC) 2WR.1C; GLUCOSE,POINT OF CARE 248 MG/DL (70-110)
[2022-09-07] MEDS: MELATONIN 5 MG TABLET PO PRN (22:58)
[2022-09-08] MEDS ORDERED: GABA-1181 PO (02:52)
[2022-09-08] MEDS ORDERED: DOCU-385 PO (02:52)
[2022-09-08] MEDS ORDERED: MIRT-149 PO (02:52)
[2022-09-08] MEDS ORDERED: FERR325T27 PO (02:52)
[2022-09-08] MEDS ORDERED: FEBU40T PO (02:52)
[2022-09-08] MEDS ORDERED: LABE100T51 PO (02:52)
[2022-09-08] MEDS ORDERED: INSLAN SQ (02:52)
[2022-09-08] MEDS ORDERED: CLON0.1T2 PO (02:52)
[2022-09-08] MEDS ORDERED: THIA100T80 PO (02:52)
[2022-09-08] MEDS ORDERED: SENN-187 PO (02:52)
[2022-09-08] MEDS ORDERED: FOLI-130 PO (02:52)
[2022-09-08] MEDS ORDERED: FAMO20 PO (02:52)
[2022-09-08] MEDS ORDERED: INSU100V SQ ×2 (02:52)
[2022-09-08] MEDS ORDERED: DICL100G51 TP (02:52)
[2022-09-08] MEDS ORDERED: POLY17PO47 PO (02:52)
[2022-09-08] MEDS ORDERED: NIFE-129 PO (02:52)
[2022-09-08] MEDS: FAMOTIDINE 20 MG TABLET PO SCH ×2 (06:28→16:53)
[2022-09-08 06:46] LABS: GLUCOMETER DEV NAME(LOC) 2WR.2B; GLUCOSE,POINT OF CARE 176 MG/DL (70-110)
[2022-09-08 07:05] LABS: BASOPHILS % (AUTO) 0.4 % (0.0-2.0); EOSINOPHILS % (AUTO) 1.7 % (1.0-6.0); HEMATOCRIT 34.3 % (41-53); HEMOGLOBIN 10.7 g/dL (13.5-17.5); LYMPHOCYTES # (AUTO) 1.4 K/uL (1.0-4.8); LYMPHOCYTES % (AUTO) 25.9 % (22.0-44.0); MEAN CORPUSCULAR HEMOGLOBIN 21.6 pg (26.0-34.0); MEAN CORPUSCULAR VOLUME 70 fL (80-100); MONOCYTES # (AUTO) 0.4 K/uL (0.1-1.0); MONOCYTES % (AUTO) 7.3 % (2.0-9.0); NEUTROPHILS # (AUTO) 3.4 K/uL (1.8-7.7); NEUTROPHILS % (AUTO) 64.7 % (40.0-70.0); PLATELET COUNT (AUTO) 254 K/uL (150-450); RED BLOOD CELL COUNT(AUTO) 4.92 MIL/uL (4.50-5.90); RED CELL DISTRIBUTION WIDTH 15.7 % (11.5-14.5)
[2022-09-08 07:18] LABS: ALANINE AMINOTRANSFERASE 38 U/L (12-78); ALBUMIN 3.3 g/dL (3.4-5.0); ALKALINE PHOSPHATASE 137 U/L (46-116); ANION GAP 7 mmol/L (8-16); ASPARTATE AMINOTRANSFERASE 15 U/L (15-37); BILIRUBIN,TOTAL 0.2 mg/dL (0.1-1.0); CARBON DIOXIDE 31 mmol/L (22-29); CHLORIDE 105 mmol/L (98-107); CREATININE 0.82 mg/dL (0.60-1.30); GLUCOSE,RANDOM 180 mg/dL (70-110); POTASSIUM 4.1 mmol/L (3.5-5.1); SODIUM SERUM 143 mmol/L (136-145); TOTAL PROTEIN, SERUM 7.7 g/dL (6.4-8.2); UREA NITROGEN, BLOOD 24 mg/dL (7-18)
[2022-09-08 07:19] LABS: GLOMERULAR FILTR. RATE CALC > 60 mL/min (>60)
[2022-09-08 08:05] VITALS: BP 139/85
[2022-09-08] MEDS: INSULIN LISPRO 100 UNITS/ML SQ SCH ×3 (08:06→17:29)
[2022-09-08] MEDS: INSULIN LISPRO 100 UNITS/ML SQ PRN ×4 (08:06→20:24)
[2022-09-08] MEDS: INSULIN GLARGINE,HUM.REC.ANLOG 100 UNITS/ML SQ SCH (08:07)
[2022-09-08] MEDS: MetFORMIN HCL 500 MG TABLET PO SCH ×2 (08:09→16:53)
[2022-09-08] MEDS: GABAPENTIN 300 MG CAPSULE PO SCH ×3 (08:09→20:23)
[2022-09-08] MEDS: CloNIDine HCL 0.1 MG TABLET PO SCH ×2 (08:09→20:26)
[2022-09-08] MEDS: ETHYL ALCOHOL 62% ANTISEPTIC NASAL SANITIZER 0.6 ML AMPUL NASAL SCH ×2 (08:09→20:26)
[2022-09-08] MEDS: FERROUS SULFATE 325 MG EC TABLET PO SCH ×2 (08:09→16:53)
[2022-09-08] MEDS: COLCHICINE 0.6 MG TABLET PO SCH ×2 (08:11→20:23)
[2022-09-08] MEDS: NIFEdipine 60 MG ER TABLET PO SCH (08:11)
[2022-09-08] MEDS: DOCUSATE SODIUM 100 MG CAPSULE PO SCH ×2 (08:11→20:23)
[2022-09-08] MEDS: FOLIC ACID 1 MG TABLET PO SCH (08:11)
[2022-09-08] MEDS: POLYETHYLENE GLYCOL 3350 17 GM PACKET PO SCH (08:11)
[2022-09-08] MEDS: LABETALOL HCL 100 MG TABLET PO SCH ×2 (08:12→20:26)
[2022-09-08] MEDS: THIAMINE 100 MG TABLET PO SCH (08:12)
[2022-09-08] MEDS: FEBUXOSTAT 40 MG TABLET PO SCH (08:12)
[2022-09-08] MEDS: ENOXAPARIN SODIUM 30 MG/0.3 ML PF SYRINGE SQ SCH ×2 (08:12→20:27)
[2022-09-08] MEDS: LISINOPRIL 20 MG TABLET PO SCH (08:12)
[2022-09-08] MEDS: DICLOFENAC SODIUM 1% 100 GM GEL [2GM] TP SCH ×3 (08:13→20:27)
[2022-09-08 12:22] LABS: GLUCOMETER DEV NAME(LOC) 2WR.2B; GLUCOSE,POINT OF CARE 213 MG/DL (70-110)
[2022-09-08 17:36] LABS: GLUCOMETER DEV NAME(LOC) 2WR.2B; GLUCOSE,POINT OF CARE 196 MG/DL (70-110)
[2022-09-08 20:01] VITALS: BP 114/70
[2022-09-08 20:11] LABS: GLUCOMETER DEV NAME(LOC) 2WR.2B; GLUCOSE,POINT OF CARE 178 MG/DL (70-110)
[2022-09-08] MEDS: MIRTAZAPINE 15 MG TABLET PO SCH (20:22)
[2022-09-08] MEDS: ATORVASTATIN CALCIUM 20 MG TABLET PO SCH (20:22)
[2022-09-08] MEDS: SENNOSIDES 8.6 MG TABLET PO SCH (20:25)
[2022-09-08 21:00] VITALS: BP 117/67
[2022-09-08] MEDS: MELATONIN 5 MG TABLET PO PRN (22:27)
[2022-09-09] MEDS: FAMOTIDINE 20 MG TABLET PO SCH ×2 (06:39→16:25)
[2022-09-09 07:11] LABS: GLUCOMETER DEV NAME(LOC) 2WR.2B; GLUCOSE,POINT OF CARE 213 MG/DL (70-110)
[2022-09-09 08:00] VITALS: BP 159/96
[2022-09-09] MEDS: INSULIN LISPRO 100 UNITS/ML SQ SCH ×3 (08:00→17:24)
[2022-09-09] MEDS: INSULIN LISPRO 100 UNITS/ML SQ PRN ×4 (08:02→20:33)
[2022-09-09] MEDS: INSULIN GLARGINE,HUM.REC.ANLOG 100 UNITS/ML SQ SCH (08:02)
[2022-09-09] MEDS: ENOXAPARIN SODIUM 30 MG/0.3 ML PF SYRINGE SQ SCH ×2 (08:03→20:31)
[2022-09-09] MEDS: FERROUS SULFATE 325 MG EC TABLET PO SCH ×2 (08:08→17:25)
[2022-09-09] MEDS: ETHYL ALCOHOL 62% ANTISEPTIC NASAL SANITIZER 0.6 ML AMPUL NASAL SCH ×2 (08:08→20:32)
[2022-09-09] MEDS: MetFORMIN HCL 500 MG TABLET PO SCH ×2 (08:08→17:25)
[2022-09-09] MEDS: FEBUXOSTAT 40 MG TABLET PO SCH (08:09)
[2022-09-09] MEDS: NIFEdipine 60 MG ER TABLET PO SCH (08:09)
[2022-09-09] MEDS: DOCUSATE SODIUM 100 MG CAPSULE PO SCH ×2 (08:09→20:31)
[2022-09-09] MEDS: LABETALOL HCL 100 MG TABLET PO SCH ×2 (08:09→20:31)
[2022-09-09] MEDS: CloNIDine HCL 0.1 MG TABLET PO SCH ×2 (08:09→20:32)
[2022-09-09] MEDS: POLYETHYLENE GLYCOL 3350 17 GM PACKET PO SCH (08:09)
[2022-09-09] MEDS: FOLIC ACID 1 MG TABLET PO SCH (08:09)
[2022-09-09] MEDS: GABAPENTIN 300 MG CAPSULE PO SCH ×3 (08:09→20:31)
[2022-09-09] MEDS: COLCHICINE 0.6 MG TABLET PO SCH ×2 (08:09→20:31)
[2022-09-09] MEDS: LISINOPRIL 20 MG TABLET PO SCH (08:10)
[2022-09-09] MEDS: DICLOFENAC SODIUM 1% 100 GM GEL [2GM] TP SCH ×4 (08:10→20:50)
[2022-09-09] MEDS: THIAMINE 100 MG TABLET PO SCH (08:10)
[2022-09-09 13:06] LABS: GLUCOMETER DEV NAME(LOC) 2WR.2B; GLUCOSE,POINT OF CARE 155 MG/DL (70-110)
[2022-09-09 16:00] VITALS: BP 102/55
[2022-09-09 16:50] VITALS: BP 108/63
[2022-09-09 20:10] VITALS: BP 120/71
[2022-09-09 20:26] LABS: GLUCOMETER DEV NAME(LOC) 2WR.1C; GLUCOSE,POINT OF CARE 175 MG/DL (70-110)
[2022-09-09] MEDS: MIRTAZAPINE 15 MG TABLET PO SCH (20:31)
[2022-09-09] MEDS: ATORVASTATIN CALCIUM 20 MG TABLET PO SCH (20:31)
[2022-09-09] MEDS: SENNOSIDES 8.6 MG TABLET PO SCH (20:32)
[2022-09-09 20:46] LABS: GLUCOMETER DEV NAME(LOC) 2WR.1C; GLUCOSE,POINT OF CARE 308 MG/DL (70-110)
[2022-09-09] MEDS: MELATONIN 5 MG TABLET PO PRN (22:19)
[2022-09-10] MEDS: FAMOTIDINE 20 MG TABLET PO SCH ×2 (06:44→16:44)
[2022-09-10 07:01] LABS: GLUCOMETER DEV NAME(LOC) 2WR.2B; GLUCOSE,POINT OF CARE 154 MG/DL (70-110)
[2022-09-10] MEDS: ENOXAPARIN SODIUM 30 MG/0.3 ML PF SYRINGE SQ SCH ×2 (07:56→20:50)
[2022-09-10] MEDS: LISINOPRIL 20 MG TABLET PO SCH (07:56)
[2022-09-10] MEDS: POLYETHYLENE GLYCOL 3350 17 GM PACKET PO SCH ×2 (07:56→08:29)
[2022-09-10] MEDS: MetFORMIN HCL 500 MG TABLET PO SCH ×2 (07:56→16:44)
[2022-09-10] MEDS: DOCUSATE SODIUM 100 MG CAPSULE PO SCH ×2 (07:56→20:49)
[2022-09-10] MEDS: GABAPENTIN 300 MG CAPSULE PO SCH ×3 (07:56→20:49)
[2022-09-10] MEDS: CloNIDine HCL 0.1 MG TABLET PO SCH ×2 (07:56→21:08)
[2022-09-10] MEDS: FERROUS SULFATE 325 MG EC TABLET PO SCH ×2 (07:56→16:44)
[2022-09-10] MEDS: FEBUXOSTAT 40 MG TABLET PO SCH (07:57)
[2022-09-10] MEDS: LABETALOL HCL 100 MG TABLET PO SCH ×2 (07:58→20:49)
[2022-09-10] MEDS: THIAMINE 100 MG TABLET PO SCH (07:58)
[2022-09-10] MEDS: FOLIC ACID 1 MG TABLET PO SCH (07:58)
[2022-09-10] MEDS: NIFEdipine 60 MG ER TABLET PO SCH (07:58)
[2022-09-10] MEDS: COLCHICINE 0.6 MG TABLET PO SCH ×2 (07:58→20:49)
[2022-09-10 08:00] VITALS: BP 162/108
[2022-09-10] MEDS: ETHYL ALCOHOL 62% ANTISEPTIC NASAL SANITIZER 0.6 ML AMPUL NASAL SCH ×2 (08:00→20:49)
[2022-09-10] MEDS: DICLOFENAC SODIUM 1% 100 GM GEL [2GM] TP SCH ×3 (08:00→20:50)
[2022-09-10] MEDS: INSULIN LISPRO 100 UNITS/ML SQ SCH ×3 (08:12→16:55)
[2022-09-10] MEDS: INSULIN LISPRO 100 UNITS/ML SQ PRN ×3 (08:13→16:56)
[2022-09-10] MEDS: INSULIN GLARGINE,HUM.REC.ANLOG 100 UNITS/ML SQ SCH (08:13)
[2022-09-10 09:49] VITALS: BP 154/101
[2022-09-10 11:47] VITALS: BP 113/76
[2022-09-10] MEDS ORDERED: HydrALAZINE HCL 25 MG TABLET PO PRN (12:45)
[2022-09-10 13:26] LABS: GLUCOMETER DEV NAME(LOC) 2WR.1C; GLUCOSE,POINT OF CARE 161 MG/DL (70-110)
[2022-09-10 17:21] LABS: GLUCOMETER DEV NAME(LOC) 2WR.2B; GLUCOSE,POINT OF CARE 284 MG/DL (70-110)
[2022-09-10] MEDS: MIRTAZAPINE 15 MG TABLET PO SCH (20:49)
[2022-09-10] MEDS: ATORVASTATIN CALCIUM 20 MG TABLET PO SCH (20:49)
[2022-09-10] MEDS: SENNOSIDES 8.6 MG TABLET PO SCH (20:49)
[2022-09-10 21:00] VITALS: BP 115/71
[2022-09-10] MEDS: -LIDODERM PATCH NOTE- MISC SCH (21:00)
[2022-09-10 21:51] LABS: GLUCOMETER DEV NAME(LOC) 2WR.1C; GLUCOSE,POINT OF CARE 139 MG/DL (70-110)
[2022-09-10] MEDS: MELATONIN 5 MG TABLET PO PRN (22:06)
[2022-09-11] MEDS: FAMOTIDINE 20 MG TABLET PO SCH ×2 (06:26→16:44)
[2022-09-11 07:06] LABS: GLUCOMETER DEV NAME(LOC) 2WR.1C; GLUCOSE,POINT OF CARE 142 MG/DL (70-110)
[2022-09-11 08:00] VITALS: BP 137/89
[2022-09-11] MEDS: INSULIN LISPRO 100 UNITS/ML SQ SCH ×3 (08:02→16:48)
[2022-09-11] MEDS: INSULIN LISPRO 100 UNITS/ML SQ PRN ×3 (08:03→22:10)
[2022-09-11] MEDS: INSULIN GLARGINE,HUM.REC.ANLOG 100 UNITS/ML SQ SCH (08:03)
[2022-09-11] MEDS: ENOXAPARIN SODIUM 30 MG/0.3 ML PF SYRINGE SQ SCH ×2 (08:04→21:56)
[2022-09-11] MEDS: FERROUS SULFATE 325 MG EC TABLET PO SCH ×2 (08:08→16:44)
[2022-09-11] MEDS: ETHYL ALCOHOL 62% ANTISEPTIC NASAL SANITIZER 0.6 ML AMPUL NASAL SCH ×2 (08:08→21:49)
[2022-09-11] MEDS: MetFORMIN HCL 500 MG TABLET PO SCH ×2 (08:08→16:44)
[2022-09-11] MEDS: CloNIDine HCL 0.1 MG TABLET PO SCH ×2 (08:08→21:00)
[2022-09-11] MEDS: GABAPENTIN 300 MG CAPSULE PO SCH ×3 (08:09→21:53)
[2022-09-11] MEDS: DOCUSATE SODIUM 100 MG CAPSULE PO SCH ×2 (08:09→21:51)
[2022-09-11] MEDS: POLYETHYLENE GLYCOL 3350 17 GM PACKET PO SCH (08:09)
[2022-09-11] MEDS: COLCHICINE 0.6 MG TABLET PO SCH ×2 (08:09→21:51)
[2022-09-11] MEDS: NIFEdipine 60 MG ER TABLET PO SCH (08:09)
[2022-09-11] MEDS: FOLIC ACID 1 MG TABLET PO SCH (08:09)
[2022-09-11] MEDS: LABETALOL HCL 100 MG TABLET PO SCH ×2 (08:10→21:00)
[2022-09-11] MEDS: THIAMINE 100 MG TABLET PO SCH (08:10)
[2022-09-11] MEDS: LISINOPRIL 20 MG TABLET PO SCH (08:10)
[2022-09-11] MEDS: FEBUXOSTAT 40 MG TABLET PO SCH (08:10)
[2022-09-11] MEDS: DICLOFENAC SODIUM 1% 100 GM GEL [2GM] TP SCH ×3 (08:11→21:53)
[2022-09-11] MEDS: LIDOCAINE 5% TRANSDERMAL PATCH TD SCH (08:11)
[2022-09-11 12:26] LABS: GLUCOMETER DEV NAME(LOC) 2WR.1C; GLUCOSE,POINT OF CARE 140 MG/DL (70-110)
[2022-09-11 17:02] LABS: GLUCOMETER DEV NAME(LOC) 2WR.1C; GLUCOSE,POINT OF CARE 249 MG/DL (70-110)
[2022-09-11 21:00] VITALS: BP 102/63
[2022-09-11] MEDS: SENNOSIDES 8.6 MG TABLET PO SCH (21:52)
[2022-09-11] MEDS: MIRTAZAPINE 15 MG TABLET PO SCH (21:52)
[2022-09-11] MEDS: ATORVASTATIN CALCIUM 20 MG TABLET PO SCH (21:52)
[2022-09-11 22:01] LABS: GLUCOMETER DEV NAME(LOC) 2WR.1C; GLUCOSE,POINT OF CARE 156 MG/DL (70-110)
[2022-09-11] MEDS: -LIDODERM PATCH NOTE- MISC SCH (22:12)
[2022-09-12] MEDS: FAMOTIDINE 20 MG TABLET PO SCH ×2 (06:49→16:41)
[2022-09-12 07:06] LABS: GLUCOMETER DEV NAME(LOC) 2WR.1C; GLUCOSE,POINT OF CARE 172 MG/DL (70-110)
[2022-09-12 08:01] VITALS: BP 140/96
[2022-09-12] MEDS: INSULIN LISPRO 100 UNITS/ML SQ SCH ×3 (08:08→17:20)
[2022-09-12] MEDS: INSULIN GLARGINE,HUM.REC.ANLOG 100 UNITS/ML SQ SCH (08:10)
[2022-09-12] MEDS: INSULIN LISPRO 100 UNITS/ML SQ PRN ×3 (08:10→20:36)
[2022-09-12] MEDS: ENOXAPARIN SODIUM 30 MG/0.3 ML PF SYRINGE SQ SCH ×2 (08:11→20:33)
[2022-09-12] MEDS: CloNIDine HCL 0.1 MG TABLET PO SCH ×2 (08:12→20:34)
[2022-09-12] MEDS: DOCUSATE SODIUM 100 MG CAPSULE PO SCH ×2 (08:12→20:12)
[2022-09-12] MEDS: GABAPENTIN 300 MG CAPSULE PO SCH ×3 (08:12→20:34)
[2022-09-12] MEDS: FERROUS SULFATE 325 MG EC TABLET PO SCH ×2 (08:12→16:41)
[2022-09-12] MEDS: LISINOPRIL 20 MG TABLET PO SCH (08:12)
[2022-09-12] MEDS: MetFORMIN HCL 500 MG TABLET PO SCH ×2 (08:13→16:41)
[2022-09-12] MEDS: ETHYL ALCOHOL 62% ANTISEPTIC NASAL SANITIZER 0.6 ML AMPUL NASAL SCH ×2 (08:16→20:32)
[2022-09-12] MEDS: THIAMINE 100 MG TABLET PO SCH (08:17)
[2022-09-12] MEDS: FEBUXOSTAT 40 MG TABLET PO SCH (08:17)
[2022-09-12] MEDS: LIDOCAINE 5% TRANSDERMAL PATCH TD SCH (08:17)
[2022-09-12] MEDS: LABETALOL HCL 100 MG TABLET PO SCH ×2 (08:17→20:34)
[2022-09-12] MEDS: NIFEdipine 60 MG ER TABLET PO SCH (08:18)
[2022-09-12] MEDS: COLCHICINE 0.6 MG TABLET PO SCH ×2 (08:18→20:34)
[2022-09-12] MEDS: FOLIC ACID 1 MG TABLET PO SCH (08:18)
[2022-09-12] MEDS: DICLOFENAC SODIUM 1% 100 GM GEL [2GM] TP SCH ×3 (08:19→20:33)
[2022-09-12] MEDS: POLYETHYLENE GLYCOL 3350 17 GM PACKET PO SCH (08:20)
[2022-09-12 11:56] LABS: GLUCOMETER DEV NAME(LOC) 2WR.2B; GLUCOSE,POINT OF CARE 102 MG/DL (70-110)
[2022-09-12 17:21] LABS: GLUCOMETER DEV NAME(LOC) 2WR.2B; GLUCOSE,POINT OF CARE 215 MG/DL (70-110)
[2022-09-12 20:00] VITALS: BP 125/87
[2022-09-12] MEDS: -LIDODERM PATCH NOTE- MISC SCH (20:10)
[2022-09-12] MEDS: SENNOSIDES 8.6 MG TABLET PO SCH (20:14)
[2022-09-12] MEDS: ATORVASTATIN CALCIUM 20 MG TABLET PO SCH (20:33)
[2022-09-12] MEDS: MIRTAZAPINE 15 MG TABLET PO SCH (20:33)
[2022-09-12 21:02] LABS: GLUCOMETER DEV NAME(LOC) 2WR.2B; GLUCOSE,POINT OF CARE 163 MG/DL (70-110)
[2022-09-13] MEDS: FAMOTIDINE 20 MG TABLET PO SCH ×2 (06:33→16:24)
[2022-09-13 07:06] LABS: GLUCOMETER DEV NAME(LOC) 2WR.1C; GLUCOSE,POINT OF CARE 119 MG/DL (70-110)
[2022-09-13 08:00] VITALS: BP 125/78
[2022-09-13] MEDS: MetFORMIN HCL 500 MG TABLET PO SCH ×2 (08:11→16:23)
[2022-09-13] MEDS: FERROUS SULFATE 325 MG EC TABLET PO SCH ×2 (08:11→16:24)
[2022-09-13] MEDS: LISINOPRIL 20 MG TABLET PO SCH (08:11)
[2022-09-13] MEDS: ENOXAPARIN SODIUM 30 MG/0.3 ML PF SYRINGE SQ SCH ×2 (08:11→20:39)
[2022-09-13] MEDS: CloNIDine HCL 0.1 MG TABLET PO SCH ×2 (08:11→20:39)
[2022-09-13] MEDS: DOCUSATE SODIUM 100 MG CAPSULE PO SCH ×3 (08:11→20:25)
[2022-09-13] MEDS: NIFEdipine 60 MG ER TABLET PO SCH (08:12)
[2022-09-13] MEDS: GABAPENTIN 300 MG CAPSULE PO SCH ×3 (08:12→20:39)
[2022-09-13] MEDS: LIDOCAINE 5% TRANSDERMAL PATCH TD SCH (08:12)
[2022-09-13] MEDS: DICLOFENAC SODIUM 1% 100 GM GEL [2GM] TP SCH ×3 (08:12→20:40)
[2022-09-13] MEDS: LABETALOL HCL 100 MG TABLET PO SCH ×2 (08:12→20:39)
[2022-09-13] MEDS: THIAMINE 100 MG TABLET PO SCH (08:13)
[2022-09-13] MEDS: COLCHICINE 0.6 MG TABLET PO SCH ×2 (08:13→20:39)
[2022-09-13] MEDS: FEBUXOSTAT 40 MG TABLET PO SCH (08:13)
[2022-09-13] MEDS: FOLIC ACID 1 MG TABLET PO SCH (08:13)
[2022-09-13] MEDS: INSULIN LISPRO 100 UNITS/ML SQ SCH ×3 (08:16→17:14)
[2022-09-13] MEDS: INSULIN GLARGINE,HUM.REC.ANLOG 100 UNITS/ML SQ SCH (08:17)
[2022-09-13] MEDS: ETHYL ALCOHOL 62% ANTISEPTIC NASAL SANITIZER 0.6 ML AMPUL NASAL SCH ×2 (08:18→20:38)
[2022-09-13] MEDS: POLYETHYLENE GLYCOL 3350 17 GM PACKET PO SCH (08:18)
[2022-09-13] MEDS: MODAFINIL 100 MG TABLET PO SCH (10:40)
[2022-09-13 13:16] LABS: GLUCOMETER DEV NAME(LOC) 2WR.2B; GLUCOSE,POINT OF CARE 137 MG/DL (70-110)
[2022-09-13 20:00] VITALS: BP 112/73
[2022-09-13] MEDS: SENNOSIDES 8.6 MG TABLET PO SCH (20:25)
[2022-09-13] MEDS: ATORVASTATIN CALCIUM 20 MG TABLET PO SCH (20:39)
[2022-09-13] MEDS: MIRTAZAPINE 15 MG TABLET PO SCH (20:39)
[2022-09-13] MEDS: -LIDODERM PATCH NOTE- MISC SCH (20:47)
[2022-09-13 21:06] LABS: GLUCOMETER DEV NAME(LOC) 2WR.2B; GLUCOSE,POINT OF CARE 109 MG/DL (70-110)
[2022-09-13] MEDS: MELATONIN 5 MG TABLET PO PRN (21:09)
[2022-09-14] MEDS: FAMOTIDINE 20 MG TABLET PO SCH ×2 (05:57→16:37)
[2022-09-14 06:01] LABS: GLUCOMETER DEV NAME(LOC) 2WR.1C; GLUCOSE,POINT OF CARE 110 MG/DL (70-110)
[2022-09-14 06:41] LABS: GLUCOMETER DEV NAME(LOC) 2WR.2B; GLUCOSE,POINT OF CARE 198 MG/DL (70-110)
[2022-09-14 07:07] LABS: ANION GAP 6 mmol/L (8-16); CALCIUM, TOTAL 9.1 mg/dL (8.8-10.5); CARBON DIOXIDE 29 mmol/L (22-29); CHLORIDE 106 mmol/L (98-107); CREATININE 0.95 mg/dL (0.60-1.30); GLUCOSE,RANDOM 212 mg/dL (70-110); PHOSPHORUS 5.2 mg/dL (2.5-4.9); POTASSIUM 4.1 mmol/L (3.5-5.1); SODIUM SERUM 141 mmol/L (136-145); UREA NITROGEN, BLOOD 31 mg/dL (7-18)
[2022-09-14 07:13] LABS: GLOMERULAR FILTR. RATE CALC > 60 mL/min (>60)
[2022-09-14 08:00] VITALS: BP 140/91
[2022-09-14] MEDS: INSULIN LISPRO 100 UNITS/ML SQ SCH ×3 (08:34→17:01)
[2022-09-14] MEDS: INSULIN LISPRO 100 UNITS/ML SQ PRN ×2 (08:34→17:02)
[2022-09-14] MEDS: INSULIN GLARGINE,HUM.REC.ANLOG 100 UNITS/ML SQ SCH (08:35)
[2022-09-14] MEDS: ENOXAPARIN SODIUM 30 MG/0.3 ML PF SYRINGE SQ SCH ×2 (08:36→20:30)
[2022-09-14] MEDS: FERROUS SULFATE 325 MG EC TABLET PO SCH ×2 (08:40→16:37)
[2022-09-14] MEDS: COLCHICINE 0.6 MG TABLET PO SCH ×2 (08:41→20:27)
[2022-09-14] MEDS: DOCUSATE SODIUM 100 MG CAPSULE PO SCH ×2 (08:41→20:27)
[2022-09-14] MEDS: CloNIDine HCL 0.1 MG TABLET PO SCH ×2 (08:41→20:28)
[2022-09-14] MEDS: ETHYL ALCOHOL 62% ANTISEPTIC NASAL SANITIZER 0.6 ML AMPUL NASAL SCH ×2 (08:41→20:28)
[2022-09-14] MEDS: MetFORMIN HCL 500 MG TABLET PO SCH ×2 (08:41→16:37)
[2022-09-14] MEDS: FOLIC ACID 1 MG TABLET PO SCH (08:42)
[2022-09-14] MEDS: FEBUXOSTAT 40 MG TABLET PO SCH (08:42)
[2022-09-14] MEDS: POLYETHYLENE GLYCOL 3350 17 GM PACKET PO SCH (08:42)
[2022-09-14] MEDS: NIFEdipine 60 MG ER TABLET PO SCH (08:42)
[2022-09-14] MEDS: GABAPENTIN 300 MG CAPSULE PO SCH ×3 (08:42→20:28)
[2022-09-14] MEDS: LABETALOL HCL 100 MG TABLET PO SCH ×2 (08:42→20:28)
[2022-09-14] MEDS: MODAFINIL 100 MG TABLET PO SCH (08:42)
[2022-09-14] MEDS: LISINOPRIL 20 MG TABLET PO SCH (08:43)
[2022-09-14] MEDS: LIDOCAINE 5% TRANSDERMAL PATCH TD SCH (08:43)
[2022-09-14] MEDS: DICLOFENAC SODIUM 1% 100 GM GEL [2GM] TP SCH ×3 (08:43→20:27)
[2022-09-14] MEDS: THIAMINE 100 MG TABLET PO SCH (08:43)
[2022-09-14 13:01] LABS: GLUCOMETER DEV NAME(LOC) 2WR.2B; GLUCOSE,POINT OF CARE 88 MG/DL (70-110)
[2022-09-14 17:21] LABS: GLUCOMETER DEV NAME(LOC) 2WR.1C; GLUCOSE,POINT OF CARE 193 MG/DL (70-110)
[2022-09-14 19:48] VITALS: BP 149/77
[2022-09-14] MEDS: MIRTAZAPINE 15 MG TABLET PO SCH (20:27)
[2022-09-14] MEDS: ATORVASTATIN CALCIUM 20 MG TABLET PO SCH (20:27)
[2022-09-14] MEDS: -LIDODERM PATCH NOTE- MISC SCH (20:28)
[2022-09-14] MEDS: SENNOSIDES 8.6 MG TABLET PO SCH (20:28)
[2022-09-14 21:57] LABS: GLUCOMETER DEV NAME(LOC) 2WR.1C; GLUCOSE,POINT OF CARE 137 MG/DL (70-110)
[2022-09-15] MEDS: MELATONIN 5 MG TABLET PO PRN ×2 (00:28→23:32)
[2022-09-15] MEDS: FAMOTIDINE 20 MG TABLET PO SCH ×2 (06:24→17:11)
[2022-09-15 06:55] LABS: GLUCOMETER DEV NAME(LOC) 2WR.2B; GLUCOSE,POINT OF CARE 115 MG/DL (70-110)
[2022-09-15 08:00] VITALS: BP 123/81
[2022-09-15] MEDS: INSULIN LISPRO 100 UNITS/ML SQ SCH ×3 (08:02→17:39)
[2022-09-15] MEDS: INSULIN GLARGINE,HUM.REC.ANLOG 100 UNITS/ML SQ SCH (08:03)
[2022-09-15] MEDS: ENOXAPARIN SODIUM 30 MG/0.3 ML PF SYRINGE SQ SCH ×2 (08:03→21:29)
[2022-09-15] MEDS: DOCUSATE SODIUM 100 MG CAPSULE PO SCH ×2 (08:09→21:12)
[2022-09-15] MEDS: FOLIC ACID 1 MG TABLET PO SCH (08:09)
[2022-09-15] MEDS: CloNIDine HCL 0.1 MG TABLET PO SCH ×2 (08:09→21:12)
[2022-09-15] MEDS: MetFORMIN HCL 500 MG TABLET PO SCH ×2 (08:09→17:11)
[2022-09-15] MEDS: FERROUS SULFATE 325 MG EC TABLET PO SCH ×2 (08:09→17:11)
[2022-09-15] MEDS: COLCHICINE 0.6 MG TABLET PO SCH ×2 (08:09→21:12)
[2022-09-15] MEDS: POLYETHYLENE GLYCOL 3350 17 GM PACKET PO SCH (08:09)
[2022-09-15] MEDS: ETHYL ALCOHOL 62% ANTISEPTIC NASAL SANITIZER 0.6 ML AMPUL NASAL SCH ×2 (08:09→21:14)
[2022-09-15] MEDS: MODAFINIL 100 MG TABLET PO SCH (08:10)
[2022-09-15] MEDS: FEBUXOSTAT 40 MG TABLET PO SCH (08:10)
[2022-09-15] MEDS: THIAMINE 100 MG TABLET PO SCH (08:10)
[2022-09-15] MEDS: GABAPENTIN 300 MG CAPSULE PO SCH ×3 (08:10→21:12)
[2022-09-15] MEDS: LABETALOL HCL 100 MG TABLET PO SCH ×2 (08:10→21:12)
[2022-09-15] MEDS: NIFEdipine 60 MG ER TABLET PO SCH (08:10)
[2022-09-15] MEDS: LISINOPRIL 20 MG TABLET PO SCH (08:10)
[2022-09-15] MEDS: LIDOCAINE 5% TRANSDERMAL PATCH TD SCH (08:11)
[2022-09-15] MEDS: DICLOFENAC SODIUM 1% 100 GM GEL [2GM] TP SCH ×3 (08:11→21:14)
[2022-09-15 12:26] LABS: GLUCOMETER DEV NAME(LOC) 2WR.2B; GLUCOSE,POINT OF CARE 103 MG/DL (70-110)
[2022-09-15] MEDS: INSULIN LISPRO 100 UNITS/ML SQ PRN ×2 (17:39→21:20)
[2022-09-15 17:57] LABS: GLUCOMETER DEV NAME(LOC) 2WR.1C; GLUCOSE,POINT OF CARE 301 MG/DL (70-110)
[2022-09-15 20:31] VITALS: BP 121/75
[2022-09-15 21:11] LABS: GLUCOMETER DEV NAME(LOC) 2WR.1C; GLUCOSE,POINT OF CARE 171 MG/DL (70-110)
[2022-09-15] MEDS: ATORVASTATIN CALCIUM 20 MG TABLET PO SCH (21:12)
[2022-09-15] MEDS: SENNOSIDES 8.6 MG TABLET PO SCH (21:12)
[2022-09-15] MEDS: MIRTAZAPINE 15 MG TABLET PO SCH (21:12)
[2022-09-15] MEDS: -LIDODERM PATCH NOTE- MISC SCH (21:15)
[2022-09-16] MEDS: FAMOTIDINE 20 MG TABLET PO SCH ×2 (06:29→17:16)
[2022-09-16 07:43] LABS: GLUCOMETER DEV NAME(LOC) 2WR.1C; GLUCOSE,POINT OF CARE 107 MG/DL (70-110)
[2022-09-16 08:00] VITALS: BP 136/90
[2022-09-16] MEDS: INSULIN LISPRO 100 UNITS/ML SQ SCH ×3 (08:21→17:11)
[2022-09-16] MEDS: INSULIN GLARGINE,HUM.REC.ANLOG 100 UNITS/ML SQ SCH (08:22)
[2022-09-16] MEDS: ENOXAPARIN SODIUM 30 MG/0.3 ML PF SYRINGE SQ SCH ×2 (08:24→21:13)
[2022-09-16] MEDS: MetFORMIN HCL 500 MG TABLET PO SCH ×2 (08:26→17:24)
[2022-09-16] MEDS: NIFEdipine 60 MG ER TABLET PO SCH (08:26)
[2022-09-16] MEDS: FEBUXOSTAT 40 MG TABLET PO SCH (08:26)
[2022-09-16] MEDS: LABETALOL HCL 100 MG TABLET PO SCH ×2 (08:26→21:13)
[2022-09-16] MEDS: FOLIC ACID 1 MG TABLET PO SCH (08:27)
[2022-09-16] MEDS: CloNIDine HCL 0.1 MG TABLET PO SCH ×2 (08:27→21:13)
[2022-09-16] MEDS: COLCHICINE 0.6 MG TABLET PO SCH ×2 (08:27→21:13)
[2022-09-16] MEDS: FERROUS SULFATE 325 MG EC TABLET PO SCH ×2 (08:27→17:14)
[2022-09-16] MEDS: THIAMINE 100 MG TABLET PO SCH (08:27)
[2022-09-16] MEDS: GABAPENTIN 300 MG CAPSULE PO SCH ×3 (08:28→21:13)
[2022-09-16] MEDS: DOCUSATE SODIUM 100 MG CAPSULE PO SCH ×2 (08:28→21:13)
[2022-09-16] MEDS: LISINOPRIL 20 MG TABLET PO SCH (08:28)
[2022-09-16] MEDS: MODAFINIL 100 MG TABLET PO SCH (08:28)
[2022-09-16] MEDS: DICLOFENAC SODIUM 1% 100 GM GEL [2GM] TP SCH ×3 (08:29→21:13)
[2022-09-16] MEDS: LIDOCAINE 5% TRANSDERMAL PATCH TD SCH (08:29)
[2022-09-16] MEDS: POLYETHYLENE GLYCOL 3350 17 GM PACKET PO SCH (08:38)
[2022-09-16] MEDS: ETHYL ALCOHOL 62% ANTISEPTIC NASAL SANITIZER 0.6 ML AMPUL NASAL SCH ×2 (09:00→21:14)
[2022-09-16 12:06] LABS: GLUCOMETER DEV NAME(LOC) 2WR.1C; GLUCOSE,POINT OF CARE 101 MG/DL (70-110)
[2022-09-16 17:22] LABS: GLUCOMETER DEV NAME(LOC) 2WR.2B; GLUCOSE,POINT OF CARE 102 MG/DL (70-110)
[2022-09-16 21:08] VITALS: BP 119/72
[2022-09-16 21:12] VITALS: BP 129/83
[2022-09-16] MEDS: SENNOSIDES 8.6 MG TABLET PO SCH (21:13)
[2022-09-16] MEDS: ATORVASTATIN CALCIUM 20 MG TABLET PO SCH (21:13)
[2022-09-16] MEDS: MIRTAZAPINE 15 MG TABLET PO SCH (21:13)
[2022-09-16] MEDS: -LIDODERM PATCH NOTE- MISC SCH (21:14)
[2022-09-16 21:23] LABS: GLUCOMETER DEV NAME(LOC) 2WR.1C; GLUCOSE,POINT OF CARE 111 MG/DL (70-110)
[2022-09-16] MEDS: MELATONIN 5 MG TABLET PO PRN (22:14)
[2022-09-17] MEDS: FAMOTIDINE 20 MG TABLET PO SCH ×2 (06:40→16:20)
[2022-09-17 07:13] LABS: GLUCOMETER DEV NAME(LOC) 2WR.1C; GLUCOSE,POINT OF CARE 105 MG/DL (70-110)
[2022-09-17] MEDS: INSULIN LISPRO 100 UNITS/ML SQ SCH ×3 (07:35→16:50)
[2022-09-17] MEDS: INSULIN GLARGINE,HUM.REC.ANLOG 100 UNITS/ML SQ SCH (07:36)
[2022-09-17] MEDS: ENOXAPARIN SODIUM 30 MG/0.3 ML PF SYRINGE SQ SCH ×2 (07:38→20:27)
[2022-09-17] MEDS: CloNIDine HCL 0.1 MG TABLET PO SCH ×2 (07:40→20:26)
[2022-09-17] MEDS: NIFEdipine 60 MG ER TABLET PO SCH (07:41)
[2022-09-17] MEDS: ETHYL ALCOHOL 62% ANTISEPTIC NASAL SANITIZER 0.6 ML AMPUL NASAL SCH ×2 (07:42→20:22)
[2022-09-17] MEDS: FERROUS SULFATE 325 MG EC TABLET PO SCH ×2 (07:42→16:20)
[2022-09-17] MEDS: FEBUXOSTAT 40 MG TABLET PO SCH (07:42)
[2022-09-17] MEDS: FOLIC ACID 1 MG TABLET PO SCH (07:43)
[2022-09-17] MEDS: THIAMINE 100 MG TABLET PO SCH (07:43)
[2022-09-17] MEDS: GABAPENTIN 300 MG CAPSULE PO SCH ×3 (07:44→20:47)
[2022-09-17] MEDS: COLCHICINE 0.6 MG TABLET PO SCH ×2 (07:46→20:26)
[2022-09-17] MEDS: LISINOPRIL 20 MG TABLET PO SCH (07:47)
[2022-09-17] MEDS: DOCUSATE SODIUM 100 MG CAPSULE PO SCH ×2 (07:47→20:26)
[2022-09-17] MEDS: LABETALOL HCL 100 MG TABLET PO SCH ×2 (07:47→20:27)
[2022-09-17] MEDS: MODAFINIL 100 MG TABLET PO SCH (07:48)
[2022-09-17] MEDS: LIDOCAINE 5% TRANSDERMAL PATCH TD SCH (07:49)
[2022-09-17] MEDS: MetFORMIN HCL 500 MG TABLET PO SCH ×2 (08:03→16:20)
[2022-09-17] MEDS: POLYETHYLENE GLYCOL 3350 17 GM PACKET PO SCH (08:08)
[2022-09-17] MEDS: DICLOFENAC SODIUM 1% 100 GM GEL [2GM] TP SCH ×3 (08:08→20:27)
[2022-09-17 08:15] VITALS: BP 113/75
[2022-09-17 09:15] VITALS: BP 82/51
[2022-09-17 09:45] VITALS: BP 90/54
[2022-09-17 10:47] VITALS: BP 104/67
[2022-09-17 14:00] VITALS: BP 129/73
[2022-09-17] MEDS: INSULIN LISPRO 100 UNITS/ML SQ PRN ×2 (16:51→20:35)
[2022-09-17 16:57] LABS: GLUCOMETER DEV NAME(LOC) 2WR.1C; GLUCOSE,POINT OF CARE 99 MG/DL (70-110)
[2022-09-17 17:07] LABS: GLUCOMETER DEV NAME(LOC) 2WR.2B; GLUCOSE,POINT OF CARE 174 MG/DL (70-110)
[2022-09-17 20:03] LABS: GLUCOMETER DEV NAME(LOC) 2WR.1C; GLUCOSE,POINT OF CARE 58 MG/DL (70-110)
[2022-09-17 20:20] VITALS: BP 129/83
[2022-09-17] MEDS: -LIDODERM PATCH NOTE- MISC SCH (20:22)
[2022-09-17] MEDS: ATORVASTATIN CALCIUM 20 MG TABLET PO SCH (20:26)
[2022-09-17] MEDS: MIRTAZAPINE 15 MG TABLET PO SCH (20:26)
[2022-09-17] MEDS: SENNOSIDES 8.6 MG TABLET PO SCH (20:45)
[2022-09-17 21:07] LABS: GLUCOMETER DEV NAME(LOC) 2WR.1C; GLUCOSE,POINT OF CARE 151 MG/DL (70-110)
[2022-09-17] MEDS: MELATONIN 5 MG TABLET PO PRN (22:02)
[2022-09-18] MEDS: FAMOTIDINE 20 MG TABLET PO SCH ×2 (06:19→16:51)
[2022-09-18 07:38] LABS: GLUCOMETER DEV NAME(LOC) 2WR.2B; GLUCOSE,POINT OF CARE 116 MG/DL (70-110)
[2022-09-18 08:00] VITALS: BP 137/93
[2022-09-18] MEDS: INSULIN GLARGINE,HUM.REC.ANLOG 100 UNITS/ML SQ SCH (08:15)
[2022-09-18] MEDS: INSULIN LISPRO 100 UNITS/ML SQ SCH ×3 (08:15→17:21)
[2022-09-18] MEDS: LIDOCAINE 5% TRANSDERMAL PATCH TD SCH (08:17)
[2022-09-18] MEDS: POLYETHYLENE GLYCOL 3350 17 GM PACKET PO SCH ×2 (08:19→08:28)
[2022-09-18] MEDS: ENOXAPARIN SODIUM 30 MG/0.3 ML PF SYRINGE SQ SCH ×2 (08:19→21:05)
[2022-09-18] MEDS: DICLOFENAC SODIUM 1% 100 GM GEL [2GM] TP SCH ×3 (08:19→21:05)
[2022-09-18] MEDS: MetFORMIN HCL 500 MG TABLET PO SCH ×2 (08:19→16:51)
[2022-09-18] MEDS: FERROUS SULFATE 325 MG EC TABLET PO SCH ×2 (08:20→16:51)
[2022-09-18] MEDS: LISINOPRIL 20 MG TABLET PO SCH (08:20)
[2022-09-18] MEDS: FOLIC ACID 1 MG TABLET PO SCH (08:20)
[2022-09-18] MEDS: NIFEdipine 60 MG ER TABLET PO SCH (08:20)
[2022-09-18] MEDS: FEBUXOSTAT 40 MG TABLET PO SCH (08:20)
[2022-09-18] MEDS: THIAMINE 100 MG TABLET PO SCH (08:20)
[2022-09-18] MEDS: DOCUSATE SODIUM 100 MG CAPSULE PO SCH ×2 (08:20→21:06)
[2022-09-18] MEDS: COLCHICINE 0.6 MG TABLET PO SCH ×2 (08:20→21:06)
[2022-09-18] MEDS: LABETALOL HCL 100 MG TABLET PO SCH ×2 (08:20→21:06)
[2022-09-18] MEDS: GABAPENTIN 300 MG CAPSULE PO SCH ×3 (08:20→21:06)
[2022-09-18] MEDS: MODAFINIL 100 MG TABLET PO SCH (08:20)
[2022-09-18] MEDS: ETHYL ALCOHOL 62% ANTISEPTIC NASAL SANITIZER 0.6 ML AMPUL NASAL SCH ×2 (08:26→21:04)
[2022-09-18] MEDS: CloNIDine HCL 0.1 MG TABLET PO SCH ×2 (08:27→21:06)
[2022-09-18 15:56] LABS: CALCIUM, TOTAL 9.4 mg/dL (8.8-10.5); CREATININE 1.48 mg/dL (0.60-1.30); POTASSIUM 4.2 mmol/L (3.5-5.1)
[2022-09-18 17:01] LABS: GLUCOMETER DEV NAME(LOC) 2WR.1C; GLUCOSE,POINT OF CARE 107 MG/DL (70-110)
[2022-09-18 17:37] LABS: GLUCOMETER DEV NAME(LOC) 2WR.1C; GLUCOSE,POINT OF CARE 119 MG/DL (70-110)
[2022-09-18 20:00] VITALS: BP 154/88
[2022-09-18 20:36] LABS: GLUCOMETER DEV NAME(LOC) 2WR.1C; GLUCOSE,POINT OF CARE 127 MG/DL (70-110)
[2022-09-18] MEDS: SENNOSIDES 8.6 MG TABLET PO SCH (21:06)
[2022-09-18] MEDS: ATORVASTATIN CALCIUM 20 MG TABLET PO SCH (21:07)
[2022-09-18] MEDS: MIRTAZAPINE 15 MG TABLET PO SCH (21:09)
[2022-09-18] MEDS: -LIDODERM PATCH NOTE- MISC SCH (21:18)
[2022-09-18] MEDS: MELATONIN 5 MG TABLET PO PRN (22:55)
[2022-09-19] MEDS: FAMOTIDINE 20 MG TABLET PO SCH ×2 (06:36→16:46)
[2022-09-19 06:56] LABS: GLUCOMETER DEV NAME(LOC) 2WR.1C; GLUCOSE,POINT OF CARE 97 MG/DL (70-110)
[2022-09-19] MEDS: INSULIN LISPRO 100 UNITS/ML SQ SCH ×3 (07:00→17:45)
[2022-09-19] MEDS: FERROUS SULFATE 325 MG EC TABLET PO SCH ×2 (08:11→17:48)
[2022-09-19] MEDS: MetFORMIN HCL 500 MG TABLET PO SCH ×2 (08:11→17:48)
[2022-09-19] MEDS: GABAPENTIN 300 MG CAPSULE PO SCH ×3 (08:12→21:28)
[2022-09-19] MEDS: ETHYL ALCOHOL 62% ANTISEPTIC NASAL SANITIZER 0.6 ML AMPUL NASAL SCH ×2 (08:12→21:11)
[2022-09-19] MEDS: CloNIDine HCL 0.1 MG TABLET PO SCH ×2 (08:12→21:11)
[2022-09-19] MEDS: LISINOPRIL 20 MG TABLET PO SCH (08:12)
[2022-09-19] MEDS: MODAFINIL 100 MG TABLET PO SCH (08:13)
[2022-09-19] MEDS: ENOXAPARIN SODIUM 30 MG/0.3 ML PF SYRINGE SQ SCH ×2 (08:13→21:13)
[2022-09-19] MEDS: DOCUSATE SODIUM 100 MG CAPSULE PO SCH ×2 (08:13→21:00)
[2022-09-19] MEDS: NIFEdipine 60 MG ER TABLET PO SCH (08:14)
[2022-09-19] MEDS: COLCHICINE 0.6 MG TABLET PO SCH ×2 (08:14→21:12)
[2022-09-19] MEDS: FOLIC ACID 1 MG TABLET PO SCH (08:14)
[2022-09-19] MEDS: THIAMINE 100 MG TABLET PO SCH (08:14)
[2022-09-19] MEDS: FEBUXOSTAT 40 MG TABLET PO SCH (08:15)
[2022-09-19] MEDS: DICLOFENAC SODIUM 1% 100 GM GEL [2GM] TP SCH ×3 (08:15→21:13)
[2022-09-19] MEDS: LABETALOL HCL 100 MG TABLET PO SCH ×2 (08:15→21:00)
[2022-09-19] MEDS: LIDOCAINE 5% TRANSDERMAL PATCH TD SCH (08:16)
[2022-09-19] MEDS: INSULIN GLARGINE,HUM.REC.ANLOG 100 UNITS/ML SQ SCH (08:21)
[2022-09-19] MEDS: POLYETHYLENE GLYCOL 3350 17 GM PACKET PO SCH (09:00)
[2022-09-19 10:17] VITALS: BP 132/80
[2022-09-19 12:41] LABS: GLUCOMETER DEV NAME(LOC) 2WR.1C; GLUCOSE,POINT OF CARE 137 MG/DL (70-110)
[2022-09-19 17:11] LABS: GLUCOMETER DEV NAME(LOC) 2WR.1C; GLUCOSE,POINT OF CARE 239 MG/DL (70-110)
[2022-09-19] MEDS: INSULIN LISPRO 100 UNITS/ML SQ PRN (17:46)
[2022-09-19] MEDS: SENNOSIDES 8.6 MG TABLET PO SCH (21:00)
[2022-09-19] MEDS: -LIDODERM PATCH NOTE- MISC SCH (21:11)
[2022-09-19] MEDS: ATORVASTATIN CALCIUM 20 MG TABLET PO SCH (21:12)
[2022-09-19] MEDS: MIRTAZAPINE 15 MG TABLET PO SCH (21:12)
[2022-09-19] MEDS: MELATONIN 5 MG TABLET PO PRN (21:15)
[2022-09-19 21:41] LABS: GLUCOMETER DEV NAME(LOC) 2WR.2B; GLUCOSE,POINT OF CARE 68 MG/DL (70-110)
[2022-09-19 21:47] VITALS: BP 105/75
[2022-09-19 22:26] LABS: GLUCOMETER DEV NAME(LOC) 2WR.2B; GLUCOSE,POINT OF CARE 78 MG/DL (70-110)
[2022-09-20 00:16] LABS: GLUCOMETER DEV NAME(LOC) 2WR.2B; GLUCOSE,POINT OF CARE 105 MG/DL (70-110)
[2022-09-20] MEDS: FAMOTIDINE 20 MG TABLET PO SCH ×2 (06:55→16:44)
[2022-09-20 07:17] LABS: GLUCOMETER DEV NAME(LOC) 2WR.2B; GLUCOSE,POINT OF CARE 105 MG/DL (70-110)
[2022-09-20 08:21] VITALS: BP 131/85
[2022-09-20] MEDS: INSULIN GLARGINE,HUM.REC.ANLOG 100 UNITS/ML SQ SCH (08:53)
[2022-09-20] MEDS: INSULIN LISPRO 100 UNITS/ML SQ SCH ×3 (08:53→16:30)
[2022-09-20] MEDS: LIDOCAINE 5% TRANSDERMAL PATCH TD SCH (08:54)
[2022-09-20] MEDS: ENOXAPARIN SODIUM 30 MG/0.3 ML PF SYRINGE SQ SCH ×2 (08:54→21:19)
[2022-09-20] MEDS: DOCUSATE SODIUM 100 MG CAPSULE PO SCH ×2 (08:58→21:20)
[2022-09-20] MEDS: COLCHICINE 0.6 MG TABLET PO SCH ×2 (08:58→21:20)
[2022-09-20] MEDS: MetFORMIN HCL 500 MG TABLET PO SCH ×2 (08:58→16:45)
[2022-09-20] MEDS: CloNIDine HCL 0.1 MG TABLET PO SCH ×2 (08:58→21:20)
[2022-09-20] MEDS: ETHYL ALCOHOL 62% ANTISEPTIC NASAL SANITIZER 0.6 ML AMPUL NASAL SCH ×2 (08:58→21:19)
[2022-09-20] MEDS: FOLIC ACID 1 MG TABLET PO SCH (08:58)
[2022-09-20] MEDS: FERROUS SULFATE 325 MG EC TABLET PO SCH ×2 (08:58→16:45)
[2022-09-20] MEDS: POLYETHYLENE GLYCOL 3350 17 GM PACKET PO SCH (08:58)
[2022-09-20] MEDS: DICLOFENAC SODIUM 1% 100 GM GEL [2GM] TP SCH ×3 (08:59→21:21)
[2022-09-20] MEDS: NIFEdipine 60 MG ER TABLET PO SCH (08:59)
[2022-09-20] MEDS: FEBUXOSTAT 40 MG TABLET PO SCH (08:59)
[2022-09-20] MEDS: GABAPENTIN 300 MG CAPSULE PO SCH ×3 (08:59→21:19)
[2022-09-20] MEDS: THIAMINE 100 MG TABLET PO SCH (08:59)
[2022-09-20] MEDS: MODAFINIL 100 MG TABLET PO SCH (08:59)
[2022-09-20] MEDS: LABETALOL HCL 100 MG TABLET PO SCH ×2 (08:59→21:20)
[2022-09-20] MEDS: LISINOPRIL 20 MG TABLET PO SCH (08:59)
[2022-09-20] MEDS ORDERED: SODIUM CHLORIDE 0.9% 1,000 ML IV ONE (10:45)
[2022-09-20] MEDS: INSULIN LISPRO 100 UNITS/ML SQ PRN ×2 (12:39→21:22)
[2022-09-20 12:41] LABS: GLUCOMETER DEV NAME(LOC) 2WR.1C; GLUCOSE,POINT OF CARE 163 MG/DL (70-110)
[2022-09-20 17:11] LABS: GLUCOMETER DEV NAME(LOC) 2WR.2B; GLUCOSE,POINT OF CARE 90 MG/DL (70-110)
[2022-09-20 20:33] VITALS: BP 120/76
[2022-09-20] MEDS: ATORVASTATIN CALCIUM 20 MG TABLET PO SCH (21:20)
[2022-09-20] MEDS: SENNOSIDES 8.6 MG TABLET PO SCH (21:20)
[2022-09-20] MEDS: MIRTAZAPINE 15 MG TABLET PO SCH (21:20)
[2022-09-20] MEDS: -LIDODERM PATCH NOTE- MISC SCH (21:20)
[2022-09-20 22:21] LABS: GLUCOMETER DEV NAME(LOC) 2WR.2B; GLUCOSE,POINT OF CARE 151 MG/DL (70-110)
[2022-09-20] MEDS: MELATONIN 5 MG TABLET PO PRN (22:36)
[2022-09-21] MEDS: FAMOTIDINE 20 MG TABLET PO SCH ×2 (06:26→17:22)
[2022-09-21 06:56] LABS: GLUCOMETER DEV NAME(LOC) 2WR.1C; GLUCOSE,POINT OF CARE 130 MG/DL (70-110)
[2022-09-21 08:00] VITALS: BP 148/94
[2022-09-21] MEDS: INSULIN LISPRO 100 UNITS/ML SQ SCH ×3 (08:14→17:25)
[2022-09-21] MEDS: INSULIN GLARGINE,HUM.REC.ANLOG 100 UNITS/ML SQ SCH (08:15)
[2022-09-21] MEDS: ENOXAPARIN SODIUM 30 MG/0.3 ML PF SYRINGE SQ SCH ×2 (08:19→20:38)
[2022-09-21] MEDS: MetFORMIN HCL 500 MG TABLET PO SCH ×2 (08:20→17:22)
[2022-09-21] MEDS: LABETALOL HCL 100 MG TABLET PO SCH ×2 (08:20→20:39)
[2022-09-21] MEDS: MODAFINIL 100 MG TABLET PO SCH (08:21)
[2022-09-21] MEDS: GABAPENTIN 300 MG CAPSULE PO SCH ×3 (08:21→20:40)
[2022-09-21] MEDS: FEBUXOSTAT 40 MG TABLET PO SCH (08:21)
[2022-09-21] MEDS: ETHYL ALCOHOL 62% ANTISEPTIC NASAL SANITIZER 0.6 ML AMPUL NASAL SCH ×2 (08:21→20:41)
[2022-09-21] MEDS: LISINOPRIL 20 MG TABLET PO SCH (08:22)
[2022-09-21] MEDS: DOCUSATE SODIUM 100 MG CAPSULE PO SCH ×2 (08:22→21:00)
[2022-09-21] MEDS: NIFEdipine 60 MG ER TABLET PO SCH (08:22)
[2022-09-21] MEDS: FERROUS SULFATE 325 MG EC TABLET PO SCH ×2 (08:22→17:21)
[2022-09-21] MEDS: FOLIC ACID 1 MG TABLET PO SCH (08:22)
[2022-09-21] MEDS: COLCHICINE 0.6 MG TABLET PO SCH ×2 (08:22→20:40)
[2022-09-21] MEDS: LIDOCAINE 5% TRANSDERMAL PATCH TD SCH (08:23)
[2022-09-21] MEDS: CloNIDine HCL 0.1 MG TABLET PO SCH ×2 (08:23→20:41)
[2022-09-21] MEDS: THIAMINE 100 MG TABLET PO SCH (08:23)
[2022-09-21] MEDS: DICLOFENAC SODIUM 1% 100 GM GEL [2GM] TP SCH ×3 (08:24→20:37)
[2022-09-21] MEDS: POLYETHYLENE GLYCOL 3350 17 GM PACKET PO SCH (08:31)
[2022-09-21 11:06] VITALS: BP 148/94
[2022-09-21 11:56] LABS: GLUCOMETER DEV NAME(LOC) 2WR.1C; GLUCOSE,POINT OF CARE 111 MG/DL (70-110)
[2022-09-21 12:04] LABS: ANION GAP 10 mmol/L (8-16); CARBON DIOXIDE 28 mmol/L (22-29); CHLORIDE 108 mmol/L (98-107); CREATININE 0.87 mg/dL (0.60-1.30); GLOMERULAR FILTR. RATE CALC > 60 mL/min (>60); GLUCOSE,RANDOM 112 mg/dL (70-110); SODIUM SERUM 146 mmol/L (136-145); UREA NITROGEN, BLOOD 25 mg/dL (7-18)
[2022-09-21] MEDS: SODIUM CHLORIDE 0.9% 1,000 ML IV ONE ×2 (13:30→15:18)
[2022-09-21 18:16] LABS: GLUCOMETER DEV NAME(LOC) 2WR.1C; GLUCOSE,POINT OF CARE 123 MG/DL (70-110)
[2022-09-21 20:00] VITALS: BP 121/75
[2022-09-21] MEDS: MIRTAZAPINE 15 MG TABLET PO SCH (20:40)
[2022-09-21] MEDS: ATORVASTATIN CALCIUM 20 MG TABLET PO SCH (20:40)
[2022-09-21] MEDS: -LIDODERM PATCH NOTE- MISC SCH (20:41)
[2022-09-21] MEDS: SENNOSIDES 8.6 MG TABLET PO SCH (21:00)
[2022-09-21 21:51] LABS: GLUCOMETER DEV NAME(LOC) 2WR.2B; GLUCOSE,POINT OF CARE 132 MG/DL (70-110)
[2022-09-21] MEDS: INSULIN LISPRO 100 UNITS/ML SQ PRN (22:03)
[2022-09-21] MEDS: MELATONIN 5 MG TABLET PO PRN (22:45)
[2022-09-22] MEDS: FAMOTIDINE 20 MG TABLET PO SCH ×2 (06:43→16:31)
[2022-09-22] MEDS: INSULIN LISPRO 100 UNITS/ML SQ SCH ×3 (07:00→17:16)
[2022-09-22 07:50] VITALS: BP 173/106
[2022-09-22 07:56] LABS: GLUCOMETER DEV NAME(LOC) 2WR.1C; GLUCOSE,POINT OF CARE 74 MG/DL (70-110)
[2022-09-22] MEDS: INSULIN GLARGINE,HUM.REC.ANLOG 100 UNITS/ML SQ SCH (08:08)
[2022-09-22] MEDS: ENOXAPARIN SODIUM 30 MG/0.3 ML PF SYRINGE SQ SCH ×2 (08:09→21:01)
[2022-09-22] MEDS: FERROUS SULFATE 325 MG EC TABLET PO SCH ×2 (08:13→16:31)
[2022-09-22] MEDS: ETHYL ALCOHOL 62% ANTISEPTIC NASAL SANITIZER 0.6 ML AMPUL NASAL SCH ×2 (08:14→20:57)
[2022-09-22] MEDS: CloNIDine HCL 0.1 MG TABLET PO SCH ×2 (08:14→20:58)
[2022-09-22] MEDS: DOCUSATE SODIUM 100 MG CAPSULE PO SCH ×2 (08:14→20:58)
[2022-09-22 08:15] VITALS: BP 149/87
[2022-09-22] MEDS: POLYETHYLENE GLYCOL 3350 17 GM PACKET PO SCH (08:15)
[2022-09-22] MEDS: LABETALOL HCL 100 MG TABLET PO SCH ×2 (08:15→21:00)
[2022-09-22] MEDS: NIFEdipine 60 MG ER TABLET PO SCH (08:15)
[2022-09-22] MEDS: FEBUXOSTAT 40 MG TABLET PO SCH (08:15)
[2022-09-22] MEDS: MODAFINIL 100 MG TABLET PO SCH (08:15)
[2022-09-22] MEDS: COLCHICINE 0.6 MG TABLET PO SCH ×2 (08:15→21:00)
[2022-09-22] MEDS: GABAPENTIN 300 MG CAPSULE PO SCH ×3 (08:15→21:00)
[2022-09-22] MEDS: FOLIC ACID 1 MG TABLET PO SCH (08:15)
[2022-09-22] MEDS: THIAMINE 100 MG TABLET PO SCH (08:16)
[2022-09-22] MEDS: DICLOFENAC SODIUM 1% 100 GM GEL [2GM] TP SCH ×3 (08:16→21:01)
[2022-09-22] MEDS: LISINOPRIL 20 MG TABLET PO SCH (08:16)
[2022-09-22] MEDS: LIDOCAINE 5% TRANSDERMAL PATCH TD SCH (08:16)
[2022-09-22] MEDS: MetFORMIN HCL 500 MG TABLET PO SCH ×2 (08:18→16:31)
[2022-09-22 08:49] LABS: ANION GAP 7 mmol/L (8-16); CALCIUM, TOTAL 8.9 mg/dL (8.8-10.5); CARBON DIOXIDE 28 mmol/L (22-29); CHLORIDE 111 mmol/L (98-107); CREATININE 0.82 mg/dL (0.60-1.30); GLUCOSE,RANDOM 78 mg/dL (70-110); POTASSIUM 3.7 mmol/L (3.5-5.1); SODIUM SERUM 146 mmol/L (136-145); UREA NITROGEN, BLOOD 21 mg/dL (7-18)
[2022-09-22 08:52] LABS: GLOMERULAR FILTR. RATE CALC > 60 mL/min (>60)
[2022-09-22 17:41] LABS: GLUCOMETER DEV NAME(LOC) 2WR.2B; GLUCOSE,POINT OF CARE 103 MG/DL (70-110)
[2022-09-22 20:00] VITALS: BP 142/85
[2022-09-22 20:26] LABS: GLUCOMETER DEV NAME(LOC) 2WR.1C; GLUCOSE,POINT OF CARE 105 MG/DL (70-110)
[2022-09-22] MEDS: MIRTAZAPINE 15 MG TABLET PO SCH (21:00)
[2022-09-22] MEDS: ATORVASTATIN CALCIUM 20 MG TABLET PO SCH (21:00)
[2022-09-22] MEDS: SENNOSIDES 8.6 MG TABLET PO SCH (21:00)
[2022-09-22] MEDS: INSULIN LISPRO 100 UNITS/ML SQ PRN (21:03)
[2022-09-22] MEDS: -LIDODERM PATCH NOTE- MISC SCH (21:11)
[2022-09-22 22:11] LABS: GLUCOMETER DEV NAME(LOC) 2WR.1C; GLUCOSE,POINT OF CARE 143 MG/DL (70-110)
[2022-09-22] MEDS: MELATONIN 5 MG TABLET PO PRN (22:12)
[2022-09-23] MEDS: FAMOTIDINE 20 MG TABLET PO SCH ×2 (06:19→16:32)
[2022-09-23 06:56] LABS: GLUCOMETER DEV NAME(LOC) 2WR.1C; GLUCOSE,POINT OF CARE 111 MG/DL (70-110)
[2022-09-23 08:05] VITALS: BP 156/94
[2022-09-23] MEDS: INSULIN GLARGINE,HUM.REC.ANLOG 100 UNITS/ML SQ SCH (08:48)
[2022-09-23] MEDS: INSULIN LISPRO 100 UNITS/ML SQ SCH ×3 (08:48→17:29)
[2022-09-23] MEDS: ENOXAPARIN SODIUM 30 MG/0.3 ML PF SYRINGE SQ SCH ×2 (08:49→21:13)
[2022-09-23] MEDS: ETHYL ALCOHOL 62% ANTISEPTIC NASAL SANITIZER 0.6 ML AMPUL NASAL SCH ×2 (08:53→21:15)
[2022-09-23] MEDS: FERROUS SULFATE 325 MG EC TABLET PO SCH ×2 (08:53→16:32)
[2022-09-23] MEDS: MetFORMIN HCL 500 MG TABLET PO SCH ×2 (08:53→16:32)
[2022-09-23] MEDS: POLYETHYLENE GLYCOL 3350 17 GM PACKET PO SCH (08:55)
[2022-09-23] MEDS: FOLIC ACID 1 MG TABLET PO SCH (08:55)
[2022-09-23] MEDS: COLCHICINE 0.6 MG TABLET PO SCH ×2 (08:55→21:15)
[2022-09-23] MEDS: CloNIDine HCL 0.1 MG TABLET PO SCH ×2 (08:55→21:16)
[2022-09-23] MEDS: DOCUSATE SODIUM 100 MG CAPSULE PO SCH ×2 (08:55→21:16)
[2022-09-23] MEDS: LABETALOL HCL 100 MG TABLET PO SCH ×2 (08:56→21:15)
[2022-09-23] MEDS: GABAPENTIN 300 MG CAPSULE PO SCH ×3 (08:56→21:15)
[2022-09-23] MEDS: NIFEdipine 60 MG ER TABLET PO SCH (08:56)
[2022-09-23] MEDS: MODAFINIL 100 MG TABLET PO SCH (08:56)
[2022-09-23] MEDS: FEBUXOSTAT 40 MG TABLET PO SCH (08:56)
[2022-09-23] MEDS: THIAMINE 100 MG TABLET PO SCH (08:57)
[2022-09-23] MEDS: LIDOCAINE 5% TRANSDERMAL PATCH TD SCH (08:57)
[2022-09-23] MEDS: LISINOPRIL 20 MG TABLET PO SCH (08:57)
[2022-09-23] MEDS: DICLOFENAC SODIUM 1% 100 GM GEL [2GM] TP SCH ×3 (08:58→21:16)
[2022-09-23 12:51] LABS: GLUCOMETER DEV NAME(LOC) 2WR.2B; GLUCOSE,POINT OF CARE 82 MG/DL (70-110)
[2022-09-23 17:02] LABS: GLUCOMETER DEV NAME(LOC) 2WR.2B; GLUCOSE,POINT OF CARE 115 MG/DL (70-110)
[2022-09-23 20:00] VITALS: BP 118/71
[2022-09-23] MEDS: SENNOSIDES 8.6 MG TABLET PO SCH (21:00)
[2022-09-23] MEDS: INSULIN LISPRO 100 UNITS/ML SQ PRN (21:13)
[2022-09-23] MEDS: ATORVASTATIN CALCIUM 20 MG TABLET PO SCH (21:15)
[2022-09-23] MEDS: MIRTAZAPINE 15 MG TABLET PO SCH (21:16)
[2022-09-23] MEDS: -LIDODERM PATCH NOTE- MISC SCH (21:22)
[2022-09-23 21:57] LABS: GLUCOMETER DEV NAME(LOC) 2WR.1C; GLUCOSE,POINT OF CARE 190 MG/DL (70-110)
[2022-09-23] MEDS: MELATONIN 5 MG TABLET PO PRN (22:13)
[2022-09-24] MEDS ORDERED: ATOR20TA86 PO (03:30)
[2022-09-24] MEDS ORDERED: MODA100T65 PO (03:30)
[2022-09-24] MEDS: FAMOTIDINE 20 MG TABLET PO SCH ×2 (06:21→16:19)
[2022-09-24] MEDS: INSULIN LISPRO 100 UNITS/ML SQ SCH ×3 (07:00→16:30)
[2022-09-24 07:44] VITALS: BP 175/97
[2022-09-24] MEDS: LABETALOL HCL 100 MG TABLET PO SCH ×2 (08:12→21:00)
[2022-09-24] MEDS: CloNIDine HCL 0.1 MG TABLET PO SCH ×2 (08:12→21:00)
[2022-09-24] MEDS: LIDOCAINE 5% TRANSDERMAL PATCH TD SCH (08:12)
[2022-09-24] MEDS: MetFORMIN HCL 500 MG TABLET PO SCH ×2 (08:12→17:31)
[2022-09-24] MEDS: FOLIC ACID 1 MG TABLET PO SCH (08:12)
[2022-09-24] MEDS: FEBUXOSTAT 40 MG TABLET PO SCH (08:12)
[2022-09-24] MEDS: NIFEdipine 60 MG ER TABLET PO SCH (08:12)
[2022-09-24] MEDS: COLCHICINE 0.6 MG TABLET PO SCH ×2 (08:12→21:12)
[2022-09-24] MEDS: FERROUS SULFATE 325 MG EC TABLET PO SCH ×2 (08:12→17:31)
[2022-09-24] MEDS: DICLOFENAC SODIUM 1% 100 GM GEL [2GM] TP SCH ×3 (08:12→21:13)
[2022-09-24] MEDS: THIAMINE 100 MG TABLET PO SCH (08:12)
[2022-09-24] MEDS: POLYETHYLENE GLYCOL 3350 17 GM PACKET PO SCH (08:13)
[2022-09-24] MEDS: ENOXAPARIN SODIUM 30 MG/0.3 ML PF SYRINGE SQ SCH ×2 (08:13→21:13)
[2022-09-24] MEDS: LISINOPRIL 20 MG TABLET PO SCH (08:13)
[2022-09-24] MEDS: ETHYL ALCOHOL 62% ANTISEPTIC NASAL SANITIZER 0.6 ML AMPUL NASAL SCH ×2 (08:13→21:11)
[2022-09-24] MEDS: GABAPENTIN 300 MG CAPSULE PO SCH ×3 (08:13→21:14)
[2022-09-24] MEDS: DOCUSATE SODIUM 100 MG CAPSULE PO SCH ×2 (08:13→21:11)
[2022-09-24] MEDS: MODAFINIL 100 MG TABLET PO SCH (08:14)
[2022-09-24] MEDS: INSULIN GLARGINE,HUM.REC.ANLOG 100 UNITS/ML SQ SCH (08:17)
[2022-09-24 09:57] VITALS: BP 149/88
[2022-09-24] MEDS: INSULIN LISPRO 100 UNITS/ML SQ PRN (12:38)
[2022-09-24 12:53] LABS: GLUCOMETER DEV NAME(LOC) 2WR.1C; GLUCOSE,POINT OF CARE 89 MG/DL (70-110)
[2022-09-24 12:53] LABS: GLUCOMETER DEV NAME(LOC) 2WR.1C; GLUCOSE,POINT OF CARE 158 MG/DL (70-110)
[2022-09-24 17:18] LABS: GLUCOMETER DEV NAME(LOC) 2WR.2B; GLUCOSE,POINT OF CARE 80 MG/DL (70-110)
[2022-09-24 20:42] LABS: GLUCOMETER DEV NAME(LOC) 2WR.2B; GLUCOSE,POINT OF CARE 110 MG/DL (70-110)
[2022-09-24] MEDS: SENNOSIDES 8.6 MG TABLET PO SCH (21:12)
[2022-09-24] MEDS: MIRTAZAPINE 15 MG TABLET PO SCH (21:12)
[2022-09-24] MEDS: ATORVASTATIN CALCIUM 20 MG TABLET PO SCH (21:12)
[2022-09-24] MEDS: -LIDODERM PATCH NOTE- MISC SCH (21:15)
[2022-09-24] MEDS: MELATONIN 5 MG TABLET PO PRN (21:19)
[2022-09-24 22:06] VITALS: BP 109/64
[2022-09-25] MEDS: FAMOTIDINE 20 MG TABLET PO SCH ×2 (06:52→16:51)
[2022-09-25 06:54] LABS: GLUCOMETER DEV NAME(LOC) 2WR.1C; GLUCOSE,POINT OF CARE 76 MG/DL (70-110)
[2022-09-25] MEDS: INSULIN LISPRO 100 UNITS/ML SQ SCH ×3 (07:00→17:35)
[2022-09-25 07:19] LABS: BASOPHILS % (AUTO) 0.8 % (0.0-2.0); EOSINOPHILS % (AUTO) 3.8 % (1.0-6.0); HEMATOCRIT 35.7 % (41-53); HEMOGLOBIN 10.8 g/dL (13.5-17.5); LYMPHOCYTES # (AUTO) 1.7 K/uL (1.0-4.8); LYMPHOCYTES % (AUTO) 42.2 % (22.0-44.0); MEAN CORPUSCULAR HEMOGLOBIN 21.2 pg (26.0-34.0); MEAN CORPUSCULAR HGB CONC 30.3 G/dL (31.0-37.0); MEAN CORPUSCULAR VOLUME 70 fL (80-100); MONOCYTES # (AUTO) 0.3 K/uL (0.1-1.0); MONOCYTES % (AUTO) 8.5 % (2.0-9.0); NEUTROPHILS # (AUTO) 1.8 K/uL (1.8-7.7); NEUTROPHILS % (AUTO) 44.7 % (40.0-70.0); PLATELET COUNT (AUTO) 280 K/uL (150-450); RED BLOOD CELL COUNT(AUTO) 5.11 MIL/uL (4.50-5.90); RED CELL DISTRIBUTION WIDTH 15.9 % (11.5-14.5)
[2022-09-25 07:34] LABS: ALANINE AMINOTRANSFERASE 78 U/L (12-78); ALBUMIN 3.6 g/dL (3.4-5.0); ALKALINE PHOSPHATASE 96 U/L (46-116); ANION GAP 5 mmol/L (8-16); ASPARTATE AMINOTRANSFERASE 35 U/L (15-37); BILIRUBIN,TOTAL 0.2 mg/dL (0.1-1.0); CALCIUM, TOTAL 9.2 mg/dL (8.8-10.5); CARBON DIOXIDE 32 mmol/L (22-29); CHLORIDE 107 mmol/L (98-107); CREATININE 0.91 mg/dL (0.60-1.30); GLUCOSE,RANDOM 84 mg/dL (70-110); POTASSIUM 4.2 mmol/L (3.5-5.1); SODIUM SERUM 144 mmol/L (136-145); TOTAL PROTEIN, SERUM 7.5 g/dL (6.4-8.2); UREA NITROGEN, BLOOD 24 mg/dL (7-18)
[2022-09-25 07:35] LABS: GLOMERULAR FILTR. RATE CALC > 60 mL/min (>60)
[2022-09-25 08:00] VITALS: BP 166/102
[2022-09-25 08:15] VITALS: BP 153/94
[2022-09-25] MEDS: INSULIN GLARGINE,HUM.REC.ANLOG 100 UNITS/ML SQ SCH (08:33)
[2022-09-25] MEDS: ENOXAPARIN SODIUM 30 MG/0.3 ML PF SYRINGE SQ SCH ×2 (08:34→20:56)
[2022-09-25] MEDS: CloNIDine HCL 0.1 MG TABLET PO SCH ×2 (08:37→20:56)
[2022-09-25] MEDS: ETHYL ALCOHOL 62% ANTISEPTIC NASAL SANITIZER 0.6 ML AMPUL NASAL SCH ×2 (08:37→20:57)
[2022-09-25] MEDS: FERROUS SULFATE 325 MG EC TABLET PO SCH ×2 (08:37→16:51)
[2022-09-25] MEDS: MetFORMIN HCL 500 MG TABLET PO SCH ×2 (08:37→16:51)
[2022-09-25] MEDS: COLCHICINE 0.6 MG TABLET PO SCH ×2 (08:38→20:56)
[2022-09-25] MEDS: DOCUSATE SODIUM 100 MG CAPSULE PO SCH ×2 (08:38→20:57)
[2022-09-25] MEDS: POLYETHYLENE GLYCOL 3350 17 GM PACKET PO SCH (08:38)
[2022-09-25] MEDS: FOLIC ACID 1 MG TABLET PO SCH (08:38)
[2022-09-25] MEDS: GABAPENTIN 300 MG CAPSULE PO SCH ×3 (08:39→20:56)
[2022-09-25] MEDS: THIAMINE 100 MG TABLET PO SCH (08:39)
[2022-09-25] MEDS: LABETALOL HCL 100 MG TABLET PO SCH ×2 (08:39→20:56)
[2022-09-25] MEDS: NIFEdipine 60 MG ER TABLET PO SCH (08:39)
[2022-09-25] MEDS: MODAFINIL 100 MG TABLET PO SCH (08:39)
[2022-09-25] MEDS: FEBUXOSTAT 40 MG TABLET PO SCH (08:39)
[2022-09-25] MEDS: LIDOCAINE 5% TRANSDERMAL PATCH TD SCH (08:40)
[2022-09-25] MEDS: DICLOFENAC SODIUM 1% 100 GM GEL [2GM] TP SCH ×3 (08:40→21:21)
[2022-09-25] MEDS: LISINOPRIL 20 MG TABLET PO SCH (08:40)
[2022-09-25 09:54] VITALS: BP 148/96
[2022-09-25 11:54] LABS: GLUCOMETER DEV NAME(LOC) 2WR.2B; GLUCOSE,POINT OF CARE 167 MG/DL (70-110)
[2022-09-25] MEDS: INSULIN LISPRO 100 UNITS/ML SQ PRN (12:26)
[2022-09-25] MEDS: 0.9% SODIUM CHLORIDE 10 ML SYRINGE IVP SCH ×2 (16:56→21:21)
[2022-09-25 17:03] LABS: GLUCOMETER DEV NAME(LOC) 2WR.1C; GLUCOSE,POINT OF CARE 102 MG/DL (70-110)
[2022-09-25] MEDS: -LIDODERM PATCH NOTE- MISC SCH (20:51)
[2022-09-25] MEDS: MIRTAZAPINE 15 MG TABLET PO SCH (20:56)
[2022-09-25] MEDS: ATORVASTATIN CALCIUM 20 MG TABLET PO SCH (20:57)
[2022-09-25 21:00] VITALS: BP 116/67
[2022-09-25] MEDS: SENNOSIDES 8.6 MG TABLET PO SCH (21:00)
[2022-09-25 21:44] LABS: GLUCOMETER DEV NAME(LOC) 2WR.2B; GLUCOSE,POINT OF CARE 140 MG/DL (70-110)
[2022-09-25] MEDS: MELATONIN 5 MG TABLET PO PRN (23:12)
[2022-09-26] MEDS: FAMOTIDINE 20 MG TABLET PO SCH ×2 (06:25→17:23)
[2022-09-26 06:58] LABS: GLUCOMETER DEV NAME(LOC) 2WR.1C; GLUCOSE,POINT OF CARE 129 MG/DL (70-110)
[2022-09-26 08:00] VITALS: BP 140/85
[2022-09-26] MEDS: INSULIN GLARGINE,HUM.REC.ANLOG 100 UNITS/ML SQ SCH (08:03)
[2022-09-26] MEDS: INSULIN LISPRO 100 UNITS/ML SQ SCH ×3 (08:05→17:40)
[2022-09-26] MEDS: LIDOCAINE 5% TRANSDERMAL PATCH TD SCH (08:07)
[2022-09-26] MEDS: DICLOFENAC SODIUM 1% 100 GM GEL [2GM] TP SCH ×3 (08:07→21:17)
[2022-09-26] MEDS: ENOXAPARIN SODIUM 30 MG/0.3 ML PF SYRINGE SQ SCH ×2 (08:08→21:17)
[2022-09-26] MEDS: CloNIDine HCL 0.1 MG TABLET PO SCH ×2 (08:09→21:16)
[2022-09-26] MEDS: FEBUXOSTAT 40 MG TABLET PO SCH (08:10)
[2022-09-26] MEDS: THIAMINE 100 MG TABLET PO SCH (08:10)
[2022-09-26] MEDS: MODAFINIL 100 MG TABLET PO SCH (08:10)
[2022-09-26] MEDS: MetFORMIN HCL 500 MG TABLET PO SCH ×2 (08:10→17:36)
[2022-09-26] MEDS: GABAPENTIN 300 MG CAPSULE PO SCH ×3 (08:11→21:17)
[2022-09-26] MEDS: FERROUS SULFATE 325 MG EC TABLET PO SCH ×2 (08:11→17:24)
[2022-09-26] MEDS: FOLIC ACID 1 MG TABLET PO SCH (08:11)
[2022-09-26] MEDS: NIFEdipine 60 MG ER TABLET PO SCH (08:12)
[2022-09-26] MEDS: LABETALOL HCL 100 MG TABLET PO SCH ×2 (08:12→21:17)
[2022-09-26] MEDS: COLCHICINE 0.6 MG TABLET PO SCH ×2 (08:12→21:16)
[2022-09-26] MEDS: LISINOPRIL 20 MG TABLET PO SCH (08:13)
[2022-09-26] MEDS: DOCUSATE SODIUM 100 MG CAPSULE PO SCH ×2 (08:13→21:16)
[2022-09-26] MEDS: 0.9% SODIUM CHLORIDE 10 ML SYRINGE IVP SCH ×2 (08:14→21:13)
[2022-09-26] MEDS: ETHYL ALCOHOL 62% ANTISEPTIC NASAL SANITIZER 0.6 ML AMPUL NASAL SCH ×2 (08:14→21:15)
[2022-09-26] MEDS: POLYETHYLENE GLYCOL 3350 17 GM PACKET PO SCH (08:20)
[2022-09-26 10:02] VITALS: BP 117/78
[2022-09-26 12:33] LABS: GLUCOMETER DEV NAME(LOC) 2WR.2B; GLUCOSE,POINT OF CARE 100 MG/DL (70-110)
[2022-09-26 17:02] LABS: GLUCOMETER DEV NAME(LOC) 2WR.2B; GLUCOSE,POINT OF CARE 64 MG/DL (70-110)
[2022-09-26 17:37] LABS: GLUCOMETER DEV NAME(LOC) 2WR.2B; GLUCOSE,POINT OF CARE 123 MG/DL (70-110)
[2022-09-26 21:00] VITALS: BP 124/83
[2022-09-26] MEDS: -LIDODERM PATCH NOTE- MISC SCH (21:15)
[2022-09-26] MEDS: SENNOSIDES 8.6 MG TABLET PO SCH (21:16)
[2022-09-26] MEDS: ATORVASTATIN CALCIUM 20 MG TABLET PO SCH (21:16)
[2022-09-26] MEDS: MIRTAZAPINE 15 MG TABLET PO SCH (21:16)
[2022-09-26] MEDS: MELATONIN 5 MG TABLET PO PRN (21:18)
[2022-09-27 05:18] LABS: GLUCOMETER DEV NAME(LOC) 2WR.1C; GLUCOSE,POINT OF CARE 88 MG/DL (70-110)
[2022-09-27] MEDS: FAMOTIDINE 20 MG TABLET PO SCH ×2 (06:48→16:47)
[2022-09-27] MEDS: INSULIN LISPRO 100 UNITS/ML SQ SCH ×3 (07:00→17:39)
[2022-09-27 07:02] LABS: GLUCOMETER DEV NAME(LOC) 2WR.2B; GLUCOSE,POINT OF CARE 74 MG/DL (70-110)
[2022-09-27 08:00] VITALS: BP 140/93
[2022-09-27] MEDS: INSULIN GLARGINE,HUM.REC.ANLOG 100 UNITS/ML SQ SCH (08:02)
[2022-09-27] MEDS: ENOXAPARIN SODIUM 30 MG/0.3 ML PF SYRINGE SQ SCH ×2 (08:03→21:02)
[2022-09-27] MEDS: LIDOCAINE 5% TRANSDERMAL PATCH TD SCH (08:03)
[2022-09-27] MEDS: MetFORMIN HCL 500 MG TABLET PO SCH ×2 (08:08→16:48)
[2022-09-27] MEDS: FERROUS SULFATE 325 MG EC TABLET PO SCH ×2 (08:08→16:47)
[2022-09-27] MEDS: 0.9% SODIUM CHLORIDE 10 ML SYRINGE IVP SCH ×2 (08:09→20:57)
[2022-09-27] MEDS: ETHYL ALCOHOL 62% ANTISEPTIC NASAL SANITIZER 0.6 ML AMPUL NASAL SCH ×2 (08:09→20:59)
[2022-09-27] MEDS: LABETALOL HCL 100 MG TABLET PO SCH ×2 (08:10→21:01)
[2022-09-27] MEDS: FOLIC ACID 1 MG TABLET PO SCH (08:10)
[2022-09-27] MEDS: GABAPENTIN 300 MG CAPSULE PO SCH ×3 (08:10→21:00)
[2022-09-27] MEDS: MODAFINIL 100 MG TABLET PO SCH (08:10)
[2022-09-27] MEDS: NIFEdipine 60 MG ER TABLET PO SCH (08:10)
[2022-09-27] MEDS: DOCUSATE SODIUM 100 MG CAPSULE PO SCH ×2 (08:10→21:00)
[2022-09-27] MEDS: FEBUXOSTAT 40 MG TABLET PO SCH (08:10)
[2022-09-27] MEDS: POLYETHYLENE GLYCOL 3350 17 GM PACKET PO SCH (08:10)
[2022-09-27] MEDS: COLCHICINE 0.6 MG TABLET PO SCH ×2 (08:10→21:00)
[2022-09-27] MEDS: CloNIDine HCL 0.1 MG TABLET PO SCH ×2 (08:10→20:59)
[2022-09-27] MEDS: LISINOPRIL 20 MG TABLET PO SCH (08:11)
[2022-09-27] MEDS: DICLOFENAC SODIUM 1% 100 GM GEL [2GM] TP SCH ×3 (08:11→20:55)
[2022-09-27] MEDS: THIAMINE 100 MG TABLET PO SCH (08:11)
[2022-09-27 12:58] LABS: GLUCOMETER DEV NAME(LOC) 2WR.1C; GLUCOSE,POINT OF CARE 100 MG/DL (70-110)
[2022-09-27] MEDS: INSULIN LISPRO 100 UNITS/ML SQ PRN ×2 (17:40→21:15)
[2022-09-27 20:10] VITALS: BP 135/81
[2022-09-27 20:58] LABS: GLUCOMETER DEV NAME(LOC) 2WR.1C; GLUCOSE,POINT OF CARE 148 MG/DL (70-110)
[2022-09-27] MEDS: -LIDODERM PATCH NOTE- MISC SCH (20:58)
[2022-09-27] MEDS: ATORVASTATIN CALCIUM 20 MG TABLET PO SCH (21:00)
[2022-09-27] MEDS: SENNOSIDES 8.6 MG TABLET PO SCH (21:00)
[2022-09-27] MEDS: MIRTAZAPINE 15 MG TABLET PO SCH (21:01)
[2022-09-27 21:02] LABS: GLUCOMETER DEV NAME(LOC) 2WR.2B; GLUCOSE,POINT OF CARE 150 MG/DL (70-110)
[2022-09-28] MEDS: INSULIN LISPRO 100 UNITS/ML SQ SCH ×3 (07:00→17:17)
[2022-09-28] MEDS: FAMOTIDINE 20 MG TABLET PO SCH ×2 (07:30→17:11)
[2022-09-28 07:48] LABS: GLUCOMETER DEV NAME(LOC) 2WR.2B; GLUCOSE,POINT OF CARE 62 MG/DL (70-110)
[2022-09-28 07:48] LABS: GLUCOMETER DEV NAME(LOC) 2WR.2B; GLUCOSE,POINT OF CARE 71 MG/DL (70-110)
[2022-09-28] MEDS: DOCUSATE SODIUM 100 MG CAPSULE PO SCH ×2 (07:54→20:47)
[2022-09-28] MEDS: ENOXAPARIN SODIUM 30 MG/0.3 ML PF SYRINGE SQ SCH ×2 (07:54→20:49)
[2022-09-28] MEDS: MetFORMIN HCL 500 MG TABLET PO SCH ×2 (07:54→18:00)
[2022-09-28] MEDS: CloNIDine HCL 0.1 MG TABLET PO SCH ×2 (07:54→20:50)
[2022-09-28] MEDS: FERROUS SULFATE 325 MG EC TABLET PO SCH ×2 (07:55→18:00)
[2022-09-28] MEDS: GABAPENTIN 300 MG CAPSULE PO SCH ×3 (07:55→20:47)
[2022-09-28] MEDS: LISINOPRIL 20 MG TABLET PO SCH (07:55)
[2022-09-28] MEDS: MODAFINIL 100 MG TABLET PO SCH (07:55)
[2022-09-28] MEDS: ETHYL ALCOHOL 62% ANTISEPTIC NASAL SANITIZER 0.6 ML AMPUL NASAL SCH ×2 (07:56→20:47)
[2022-09-28] MEDS: DICLOFENAC SODIUM 1% 100 GM GEL [2GM] TP SCH ×3 (07:56→20:46)
[2022-09-28] MEDS: LIDOCAINE 5% TRANSDERMAL PATCH TD SCH (07:56)
[2022-09-28] MEDS: COLCHICINE 0.6 MG TABLET PO SCH ×2 (07:57→20:47)
[2022-09-28] MEDS: NIFEdipine 60 MG ER TABLET PO SCH (07:57)
[2022-09-28] MEDS: FOLIC ACID 1 MG TABLET PO SCH (07:57)
[2022-09-28] MEDS: LABETALOL HCL 100 MG TABLET PO SCH ×2 (07:58→20:50)
[2022-09-28] MEDS: FEBUXOSTAT 40 MG TABLET PO SCH (07:58)
[2022-09-28] MEDS: THIAMINE 100 MG TABLET PO SCH (07:58)
[2022-09-28] MEDS: INSULIN GLARGINE,HUM.REC.ANLOG 100 UNITS/ML SQ SCH (07:59)
[2022-09-28 08:30] VITALS: BP 126/95
[2022-09-28] MEDS: POLYETHYLENE GLYCOL 3350 17 GM PACKET PO SCH (09:00)
[2022-09-28 11:01] VITALS: BP 126/95
[2022-09-28 12:48] LABS: GLUCOMETER DEV NAME(LOC) 2WR.2B; GLUCOSE,POINT OF CARE 133 MG/DL (70-110)
[2022-09-28] MEDS: INSULIN LISPRO 100 UNITS/ML SQ PRN (17:18)
[2022-09-28 17:43] LABS: GLUCOMETER DEV NAME(LOC) 2WR.2B; GLUCOSE,POINT OF CARE 163 MG/DL (70-110)
[2022-09-28 19:52] VITALS: BP 105/65
[2022-09-28] MEDS: MIRTAZAPINE 15 MG TABLET PO SCH (20:46)
[2022-09-28] MEDS: SENNOSIDES 8.6 MG TABLET PO SCH (20:46)
[2022-09-28] MEDS: ATORVASTATIN CALCIUM 20 MG TABLET PO SCH (20:47)
[2022-09-28] MEDS: -LIDODERM PATCH NOTE- MISC SCH (20:48)
[2022-09-28 20:49] VITALS: BP 108/65
[2022-09-28 21:13] LABS: GLUCOMETER DEV NAME(LOC) 2WR.1C; GLUCOSE,POINT OF CARE 105 MG/DL (70-110)
[2022-09-28] MEDS: MELATONIN 5 MG TABLET PO PRN (22:54)
[2022-09-29] MEDS: FAMOTIDINE 20 MG TABLET PO SCH ×2 (06:57→16:23)
[2022-09-29] MEDS: INSULIN LISPRO 100 UNITS/ML SQ SCH ×3 (07:00→17:01)
[2022-09-29 07:02] LABS: GLUCOMETER DEV NAME(LOC) 2WR.1C; GLUCOSE,POINT OF CARE 79 MG/DL (70-110)
[2022-09-29] MEDS: INSULIN GLARGINE,HUM.REC.ANLOG 100 UNITS/ML SQ SCH (08:16)
[2022-09-29] MEDS: ENOXAPARIN SODIUM 30 MG/0.3 ML PF SYRINGE SQ SCH ×2 (08:19→20:25)
[2022-09-29] MEDS: ETHYL ALCOHOL 62% ANTISEPTIC NASAL SANITIZER 0.6 ML AMPUL NASAL SCH ×2 (08:21→20:24)
[2022-09-29] MEDS: MetFORMIN HCL 500 MG TABLET PO SCH ×2 (08:23→16:23)
[2022-09-29] MEDS: CloNIDine HCL 0.1 MG TABLET PO SCH ×2 (08:25→20:25)
[2022-09-29] MEDS: FOLIC ACID 1 MG TABLET PO SCH (08:25)
[2022-09-29] MEDS: FEBUXOSTAT 40 MG TABLET PO SCH (08:26)
[2022-09-29] MEDS: NIFEdipine 60 MG ER TABLET PO SCH (08:27)
[2022-09-29] MEDS: FERROUS SULFATE 325 MG EC TABLET PO SCH ×2 (08:27→16:23)
[2022-09-29] MEDS: DOCUSATE SODIUM 100 MG CAPSULE PO SCH ×2 (08:28→20:26)
[2022-09-29] MEDS: THIAMINE 100 MG TABLET PO SCH (08:28)
[2022-09-29] MEDS: MODAFINIL 100 MG TABLET PO SCH (08:29)
[2022-09-29 08:30] VITALS: BP 144/98
[2022-09-29] MEDS: COLCHICINE 0.6 MG TABLET PO SCH ×2 (08:30→20:25)
[2022-09-29] MEDS: LABETALOL HCL 100 MG TABLET PO SCH ×2 (08:30→20:25)
[2022-09-29] MEDS: LISINOPRIL 20 MG TABLET PO SCH (08:31)
[2022-09-29] MEDS: GABAPENTIN 300 MG CAPSULE PO SCH ×3 (08:31→20:25)
[2022-09-29] MEDS: POLYETHYLENE GLYCOL 3350 17 GM PACKET PO SCH (08:33)
[2022-09-29] MEDS: DICLOFENAC SODIUM 1% 100 GM GEL [2GM] TP SCH ×3 (08:33→20:26)
[2022-09-29] MEDS: LIDOCAINE 5% TRANSDERMAL PATCH TD SCH (08:34)
[2022-09-29 12:31] LABS: GLUCOMETER DEV NAME(LOC) 2WR.2B; GLUCOSE,POINT OF CARE 97 MG/DL (70-110)
[2022-09-29 16:51] LABS: GLUCOMETER DEV NAME(LOC) 2WR.1C; GLUCOSE,POINT OF CARE 128 MG/DL (70-110)
[2022-09-29 20:10] VITALS: BP 117/77
[2022-09-29] MEDS: ATORVASTATIN CALCIUM 20 MG TABLET PO SCH (20:25)
[2022-09-29] MEDS: MIRTAZAPINE 15 MG TABLET PO SCH (20:25)
[2022-09-29] MEDS: -LIDODERM PATCH NOTE- MISC SCH (20:26)
[2022-09-29] MEDS: SENNOSIDES 8.6 MG TABLET PO SCH (20:26)
[2022-09-29 21:31] LABS: GLUCOMETER DEV NAME(LOC) 2WR.2B; GLUCOSE,POINT OF CARE 112 MG/DL (70-110)
[2022-09-29] MEDS: MELATONIN 5 MG TABLET PO PRN (22:41)
[2022-09-30] MEDS: FAMOTIDINE 20 MG TABLET PO SCH ×2 (06:31→17:03)
[2022-09-30] MEDS: INSULIN LISPRO 100 UNITS/ML SQ SCH ×3 (07:00→17:15)
[2022-09-30 07:30] LABS: GLUCOMETER DEV NAME(LOC) 2WR.2B; GLUCOSE,POINT OF CARE 74 MG/DL (70-110)
[2022-09-30 08:05] VITALS: BP 140/89
[2022-09-30] MEDS: ENOXAPARIN SODIUM 30 MG/0.3 ML PF SYRINGE SQ SCH ×2 (08:29→21:17)
[2022-09-30] MEDS: MODAFINIL 100 MG TABLET PO SCH (08:29)
[2022-09-30] MEDS: DOCUSATE SODIUM 100 MG CAPSULE PO SCH ×2 (08:30→21:19)
[2022-09-30] MEDS: CloNIDine HCL 0.1 MG TABLET PO SCH ×2 (08:30→21:16)
[2022-09-30] MEDS: FERROUS SULFATE 325 MG EC TABLET PO SCH ×2 (08:30→17:02)
[2022-09-30] MEDS: MetFORMIN HCL 500 MG TABLET PO SCH ×2 (08:30→17:03)
[2022-09-30] MEDS: GABAPENTIN 300 MG CAPSULE PO SCH ×3 (08:30→21:16)
[2022-09-30] MEDS: NIFEdipine 60 MG ER TABLET PO SCH (08:31)
[2022-09-30] MEDS: LIDOCAINE 5% TRANSDERMAL PATCH TD SCH (08:31)
[2022-09-30] MEDS: FEBUXOSTAT 40 MG TABLET PO SCH (08:31)
[2022-09-30] MEDS: THIAMINE 100 MG TABLET PO SCH (08:31)
[2022-09-30] MEDS: LISINOPRIL 20 MG TABLET PO SCH (08:31)
[2022-09-30] MEDS: COLCHICINE 0.6 MG TABLET PO SCH ×2 (08:32→21:17)
[2022-09-30] MEDS: DICLOFENAC SODIUM 1% 100 GM GEL [2GM] TP SCH ×3 (08:32→21:17)
[2022-09-30] MEDS: FOLIC ACID 1 MG TABLET PO SCH (08:32)
[2022-09-30] MEDS: LABETALOL HCL 100 MG TABLET PO SCH ×2 (08:33→21:15)
[2022-09-30] MEDS: INSULIN GLARGINE,HUM.REC.ANLOG 100 UNITS/ML SQ SCH (08:40)
[2022-09-30] MEDS: POLYETHYLENE GLYCOL 3350 17 GM PACKET PO SCH (09:00)
[2022-09-30] MEDS: ETHYL ALCOHOL 62% ANTISEPTIC NASAL SANITIZER 0.6 ML AMPUL NASAL SCH ×2 (09:00→21:17)
[2022-09-30 09:05] VITALS: BP 140/89
[2022-09-30 12:56] LABS: GLUCOMETER DEV NAME(LOC) 2WR.2B; GLUCOSE,POINT OF CARE 83 MG/DL (70-110)
[2022-09-30] MEDS: INSULIN LISPRO 100 UNITS/ML SQ PRN ×2 (17:16→21:23)
[2022-09-30 17:41] LABS: GLUCOMETER DEV NAME(LOC) 2WR.2B; GLUCOSE,POINT OF CARE 177 MG/DL (70-110)
[2022-09-30 21:08] VITALS: BP 116/79
[2022-09-30] MEDS: SENNOSIDES 8.6 MG TABLET PO SCH (21:16)
[2022-09-30] MEDS: ATORVASTATIN CALCIUM 20 MG TABLET PO SCH (21:16)
[2022-09-30] MEDS: MIRTAZAPINE 15 MG TABLET PO SCH (21:16)
[2022-09-30] MEDS: -LIDODERM PATCH NOTE- MISC SCH (21:18)
[2022-09-30] MEDS: MELATONIN 5 MG TABLET PO PRN (22:04)
[2022-09-30 22:06] LABS: GLUCOMETER DEV NAME(LOC) 2WR.2B; GLUCOSE,POINT OF CARE 183 MG/DL (70-110)
[2022-10-01] MEDS: FAMOTIDINE 20 MG TABLET PO SCH ×2 (06:19→18:13)
[2022-10-01] MEDS: INSULIN LISPRO 100 UNITS/ML SQ SCH ×3 (07:00→17:52)
[2022-10-01 07:16] LABS: GLUCOMETER DEV NAME(LOC) 2WR.2B; GLUCOSE,POINT OF CARE 74 MG/DL (70-110)
[2022-10-01 08:30] VITALS: BP 143/92
[2022-10-01] MEDS: POLYETHYLENE GLYCOL 3350 17 GM PACKET PO SCH (09:00)
[2022-10-01 09:01] VITALS: BP 143/92
[2022-10-01] MEDS: GABAPENTIN 300 MG CAPSULE PO SCH ×3 (09:06→21:06)
[2022-10-01] MEDS: CloNIDine HCL 0.1 MG TABLET PO SCH ×2 (09:06→21:06)
[2022-10-01] MEDS: DOCUSATE SODIUM 100 MG CAPSULE PO SCH ×2 (09:06→21:06)
[2022-10-01] MEDS: MODAFINIL 100 MG TABLET PO SCH (09:06)
[2022-10-01] MEDS: FERROUS SULFATE 325 MG EC TABLET PO SCH ×2 (09:07→18:14)
[2022-10-01] MEDS: LISINOPRIL 20 MG TABLET PO SCH (09:07)
[2022-10-01] MEDS: MetFORMIN HCL 500 MG TABLET PO SCH ×2 (09:07→18:14)
[2022-10-01] MEDS: ENOXAPARIN SODIUM 30 MG/0.3 ML PF SYRINGE SQ SCH ×2 (09:07→21:05)
[2022-10-01] MEDS: THIAMINE 100 MG TABLET PO SCH (09:08)
[2022-10-01] MEDS: LIDOCAINE 5% TRANSDERMAL PATCH TD SCH (09:08)
[2022-10-01] MEDS: DICLOFENAC SODIUM 1% 100 GM GEL [2GM] TP SCH ×3 (09:08→21:05)
[2022-10-01] MEDS: FEBUXOSTAT 40 MG TABLET PO SCH (09:08)
[2022-10-01] MEDS: LABETALOL HCL 100 MG TABLET PO SCH ×2 (09:09→21:06)
[2022-10-01] MEDS: NIFEdipine 60 MG ER TABLET PO SCH (09:09)
[2022-10-01] MEDS: FOLIC ACID 1 MG TABLET PO SCH (09:11)
[2022-10-01] MEDS: COLCHICINE 0.6 MG TABLET PO SCH ×2 (09:11→21:08)
[2022-10-01] MEDS: INSULIN GLARGINE,HUM.REC.ANLOG 100 UNITS/ML SQ SCH (09:15)
[2022-10-01] MEDS: ETHYL ALCOHOL 62% ANTISEPTIC NASAL SANITIZER 0.6 ML AMPUL NASAL SCH ×2 (09:22→21:05)
[2022-10-01 17:06] LABS: GLUCOMETER DEV NAME(LOC) 2WR.2B; GLUCOSE,POINT OF CARE 144 MG/DL (70-110)
[2022-10-01] MEDS: INSULIN LISPRO 100 UNITS/ML SQ PRN ×2 (17:52→21:18)
[2022-10-01 21:00] VITALS: BP 110/73
[2022-10-01] MEDS: SENNOSIDES 8.6 MG TABLET PO SCH (21:00)
[2022-10-01] MEDS: -LIDODERM PATCH NOTE- MISC SCH (21:01)
[2022-10-01] MEDS: MIRTAZAPINE 15 MG TABLET PO SCH (21:06)
[2022-10-01] MEDS: ATORVASTATIN CALCIUM 20 MG TABLET PO SCH (21:06)
[2022-10-01 21:46] LABS: GLUCOMETER DEV NAME(LOC) 2WR.1C; GLUCOSE,POINT OF CARE 99 MG/DL (70-110)
[2022-10-01 21:46] LABS: GLUCOMETER DEV NAME(LOC) 2WR.2B; GLUCOSE,POINT OF CARE 167 MG/DL (70-110)
[2022-10-01] MEDS: MELATONIN 5 MG TABLET PO PRN (22:44)
[2022-10-02] MEDS: FAMOTIDINE 20 MG TABLET PO SCH ×2 (06:20→16:26)
[2022-10-02] MEDS: INSULIN LISPRO 100 UNITS/ML SQ SCH ×3 (07:00→17:14)
[2022-10-02 07:06] LABS: GLUCOMETER DEV NAME(LOC) 2WR.2B; GLUCOSE,POINT OF CARE 69 MG/DL (70-110)
[2022-10-02 07:35] VITALS: BP 115/80
[2022-10-02] MEDS: DOCUSATE SODIUM 100 MG CAPSULE PO SCH ×2 (07:49→20:53)
[2022-10-02] MEDS: MODAFINIL 100 MG TABLET PO SCH (07:49)
[2022-10-02] MEDS: GABAPENTIN 300 MG CAPSULE PO SCH ×3 (07:49→20:51)
[2022-10-02] MEDS: CloNIDine HCL 0.1 MG TABLET PO SCH ×2 (07:49→20:50)
[2022-10-02] MEDS: FERROUS SULFATE 325 MG EC TABLET PO SCH ×2 (07:49→16:26)
[2022-10-02] MEDS: LABETALOL HCL 100 MG TABLET PO SCH ×2 (07:50→20:49)
[2022-10-02] MEDS: ENOXAPARIN SODIUM 30 MG/0.3 ML PF SYRINGE SQ SCH ×2 (07:50→20:50)
[2022-10-02] MEDS: COLCHICINE 0.6 MG TABLET PO SCH ×2 (07:50→20:51)
[2022-10-02] MEDS: MetFORMIN HCL 500 MG TABLET PO SCH ×2 (07:50→16:26)
[2022-10-02] MEDS: FEBUXOSTAT 40 MG TABLET PO SCH (07:50)
[2022-10-02] MEDS: LIDOCAINE 5% TRANSDERMAL PATCH TD SCH (07:50)
[2022-10-02] MEDS: THIAMINE 100 MG TABLET PO SCH (07:51)
[2022-10-02] MEDS: NIFEdipine 60 MG ER TABLET PO SCH (07:51)
[2022-10-02] MEDS: FOLIC ACID 1 MG TABLET PO SCH (07:51)
[2022-10-02] MEDS: INSULIN GLARGINE,HUM.REC.ANLOG 100 UNITS/ML SQ SCH (07:52)
[2022-10-02] MEDS: DICLOFENAC SODIUM 1% 100 GM GEL [2GM] TP SCH ×3 (08:00→20:51)
[2022-10-02] MEDS: ETHYL ALCOHOL 62% ANTISEPTIC NASAL SANITIZER 0.6 ML AMPUL NASAL SCH ×2 (08:04→20:50)
[2022-10-02] MEDS: LISINOPRIL 20 MG TABLET PO SCH (08:04)
[2022-10-02] MEDS: POLYETHYLENE GLYCOL 3350 17 GM PACKET PO SCH (08:06)
[2022-10-02 13:08] VITALS: BP 126/59
[2022-10-02 13:36] LABS: GLUCOMETER DEV NAME(LOC) 2WR.1C; GLUCOSE,POINT OF CARE 85 MG/DL (70-110)
[2022-10-02 16:56] LABS: GLUCOMETER DEV NAME(LOC) 2WR.1C; GLUCOSE,POINT OF CARE 138 MG/DL (70-110)
[2022-10-02 20:23] VITALS: BP 127/68
[2022-10-02] MEDS: SENNOSIDES 8.6 MG TABLET PO SCH ×2 (20:50→20:54)
[2022-10-02] MEDS: ATORVASTATIN CALCIUM 20 MG TABLET PO SCH (20:50)
[2022-10-02] MEDS: MIRTAZAPINE 15 MG TABLET PO SCH (20:50)
[2022-10-02 20:51] LABS: GLUCOMETER DEV NAME(LOC) 2WR.2B; GLUCOSE,POINT OF CARE 116 MG/DL (70-110)
[2022-10-02] MEDS: -LIDODERM PATCH NOTE- MISC SCH (20:53)
[2022-10-03] MEDS: FAMOTIDINE 20 MG TABLET PO SCH ×2 (06:28→17:15)
[2022-10-03 06:51] LABS: GLUCOMETER DEV NAME(LOC) 2WR.2B; GLUCOSE,POINT OF CARE 79 MG/DL (70-110)
[2022-10-03] MEDS: INSULIN LISPRO 100 UNITS/ML SQ SCH ×3 (07:00→16:30)
[2022-10-03] MEDS: DOCUSATE SODIUM 100 MG CAPSULE PO SCH ×2 (08:13→21:00)
[2022-10-03] MEDS: POLYETHYLENE GLYCOL 3350 17 GM PACKET PO SCH (08:13)
[2022-10-03] MEDS: MetFORMIN HCL 500 MG TABLET PO SCH ×2 (08:23→17:14)
[2022-10-03] MEDS: ENOXAPARIN SODIUM 30 MG/0.3 ML PF SYRINGE SQ SCH ×2 (08:23→21:26)
[2022-10-03] MEDS: GABAPENTIN 300 MG CAPSULE PO SCH ×3 (08:23→21:25)
[2022-10-03] MEDS: CloNIDine HCL 0.1 MG TABLET PO SCH ×2 (08:23→21:24)
[2022-10-03] MEDS: ETHYL ALCOHOL 62% ANTISEPTIC NASAL SANITIZER 0.6 ML AMPUL NASAL SCH ×2 (08:23→21:24)
[2022-10-03] MEDS: LISINOPRIL 20 MG TABLET PO SCH (08:23)
[2022-10-03] MEDS: FERROUS SULFATE 325 MG EC TABLET PO SCH ×2 (08:23→17:15)
[2022-10-03] MEDS: MODAFINIL 100 MG TABLET PO SCH (08:23)
[2022-10-03] MEDS: LIDOCAINE 5% TRANSDERMAL PATCH TD SCH (08:24)
[2022-10-03] MEDS: COLCHICINE 0.6 MG TABLET PO SCH ×2 (08:24→21:25)
[2022-10-03] MEDS: DICLOFENAC SODIUM 1% 100 GM GEL [2GM] TP SCH ×3 (08:24→21:26)
[2022-10-03] MEDS: FEBUXOSTAT 40 MG TABLET PO SCH (08:24)
[2022-10-03] MEDS: LABETALOL HCL 100 MG TABLET PO SCH ×2 (08:25→21:25)
[2022-10-03] MEDS: THIAMINE 100 MG TABLET PO SCH (08:25)
[2022-10-03] MEDS: FOLIC ACID 1 MG TABLET PO SCH (08:25)
[2022-10-03] MEDS: NIFEdipine 60 MG ER TABLET PO SCH (08:25)
[2022-10-03] MEDS ORDERED: INSULIN GLARGINE,HUM.REC.ANLOG 100 UNITS/ML SQ SCH (09:00)
[2022-10-03 09:52] VITALS: BP 145/104
[2022-10-03] MEDS: INSULIN LISPRO 100 UNITS/ML SQ PRN ×2 (12:27→21:34)
[2022-10-03 16:07] LABS: GLUCOMETER DEV NAME(LOC) 2WR.1C; GLUCOSE,POINT OF CARE 194 MG/DL (70-110)
[2022-10-03 20:25] VITALS: BP 125/71
[2022-10-03 20:36] LABS: GLUCOMETER DEV NAME(LOC) 2WR.2B; GLUCOSE,POINT OF CARE 195 MG/DL (70-110)
[2022-10-03 20:41] LABS: GLUCOMETER DEV NAME(LOC) 2WR.1C; GLUCOSE,POINT OF CARE 87 MG/DL (70-110)
[2022-10-03] MEDS: SENNOSIDES 8.6 MG TABLET PO SCH (21:00)
[2022-10-03] MEDS: ATORVASTATIN CALCIUM 20 MG TABLET PO SCH (21:25)
[2022-10-03] MEDS: MIRTAZAPINE 15 MG TABLET PO SCH (21:25)
[2022-10-03] MEDS: -LIDODERM PATCH NOTE- MISC SCH (21:27)
[2022-10-04] MEDS: MELATONIN 5 MG TABLET PO PRN (00:45)
[2022-10-04] MEDS: FAMOTIDINE 20 MG TABLET PO SCH (06:29)
[2022-10-04] MEDS: INSULIN LISPRO 100 UNITS/ML SQ SCH ×2 (07:00→12:33)
[2022-10-04 07:01] LABS: GLUCOMETER DEV NAME(LOC) 2WR.2B; GLUCOSE,POINT OF CARE 90 MG/DL (70-110)
[2022-10-04 08:00] VITALS: BP 150/99
[2022-10-04] MEDS: DOCUSATE SODIUM 100 MG CAPSULE PO SCH (09:00)
[2022-10-04] MEDS ORDERED: INSULIN GLARGINE,HUM.REC.ANLOG 100 UNITS/ML SQ SCH (09:00)
[2022-10-04] MEDS: POLYETHYLENE GLYCOL 3350 17 GM PACKET PO SCH (09:00)
[2022-10-04] MEDS ORDERED: METF-1211 PO (09:08)
[2022-10-04] MEDS ORDERED: FEBU40T PO (09:08)
[2022-10-04] MEDS ORDERED: INSU100V SQ ×2 (09:08)
[2022-10-04] MEDS ORDERED: LISI-894 PO (09:08)
[2022-10-04] MEDS ORDERED: FOLI-130 PO (09:08)
[2022-10-04] MEDS ORDERED: ATOR20TA65 PO (09:08)
[2022-10-04] MEDS ORDERED: GABA-1181 PO (09:08)
[2022-10-04] MEDS ORDERED: SENN-187 PO (09:08)
[2022-10-04] MEDS ORDERED: FERR325T27 PO (09:08)
[2022-10-04] MEDS ORDERED: CLON0.1T2 PO (09:08)
[2022-10-04] MEDS ORDERED: NIFE-129 PO (09:08)
[2022-10-04] MEDS ORDERED: -Lidoderm Patch Note- MISC (09:08)
[2022-10-04] MEDS ORDERED: LABE100T51 PO (09:08)
[2022-10-04] MEDS ORDERED: MODA100T65 PO (09:08)
[2022-10-04] MEDS ORDERED: FAMO20 PO (09:08)
[2022-10-04] MEDS ORDERED: COLC0.6T73 PO (09:08)
[2022-10-04] MEDS ORDERED: MIRT-89 PO (09:08)
[2022-10-04] MEDS ORDERED: DICL100G51 TP (09:08)
[2022-10-04] MEDS ORDERED: DOCU-385 PO (09:08)
[2022-10-04] MEDS ORDERED: THIA100T80 PO (09:08)
[2022-10-04] MEDS ORDERED: INSLAN SQ (09:08)
[2022-10-04] MEDS ORDERED: POLY17PO47 PO (09:08)
[2022-10-04] MEDS: MetFORMIN HCL 500 MG TABLET PO SCH (09:36)
[2022-10-04] MEDS: FERROUS SULFATE 325 MG EC TABLET PO SCH (09:36)
[2022-10-04] MEDS: CloNIDine HCL 0.1 MG TABLET PO SCH (09:37)
[2022-10-04] MEDS: ETHYL ALCOHOL 62% ANTISEPTIC NASAL SANITIZER 0.6 ML AMPUL NASAL SCH (09:37)
[2022-10-04] MEDS: NIFEdipine 60 MG ER TABLET PO SCH (09:38)
[2022-10-04] MEDS: FOLIC ACID 1 MG TABLET PO SCH (09:38)
[2022-10-04] MEDS: GABAPENTIN 300 MG CAPSULE PO SCH (09:38)
[2022-10-04] MEDS: COLCHICINE 0.6 MG TABLET PO SCH (09:38)
[2022-10-04] MEDS: MODAFINIL 100 MG TABLET PO SCH (09:38)
[2022-10-04] MEDS: LABETALOL HCL 100 MG TABLET PO SCH (09:39)
[2022-10-04] MEDS: FEBUXOSTAT 40 MG TABLET PO SCH (09:39)
[2022-10-04] MEDS: LISINOPRIL 20 MG TABLET PO SCH (09:41)
[2022-10-04] MEDS: THIAMINE 100 MG TABLET PO SCH (09:42)
[2022-10-04] MEDS: DICLOFENAC SODIUM 1% 100 GM GEL [2GM] TP SCH (09:45)
[2022-10-04] MEDS: LIDOCAINE 5% TRANSDERMAL PATCH TD SCH (09:45)
[2022-10-04] MEDS: ENOXAPARIN SODIUM 30 MG/0.3 ML PF SYRINGE SQ SCH (09:45)
[2022-10-04 12:51] LABS: GLUCOMETER DEV NAME(LOC) 2WR.2B; GLUCOSE,POINT OF CARE 130 MG/DL (70-110)
[2022-10-04 13:00] VITALS: BP 109/71
== END 2022-10-04 13:21 | disposition home health service (06) | DRG 65 ==
LOC: 2WR 21:27
PROVIDERS: ADMIT Physical Medicine & Rehabilitation; ATTEND Physical Medicine & Rehabilitation
PROC: 3E0U3BZ Introduction of Anesthetic Agent into Joints, Percutaneous Approach (ICD-10-PCS; principal; 2022-09-05)
DX: I61.8 Other nontraumatic intracerebral hemorrhage (principal); E46 Unspecified protein-calorie malnutrition; N17.9 Acute kidney failure, unspecified; R45.851 Suicidal ideations; R41.4 Neurologic neglect syndrome; G81.94 Hemiplegia, unspecified affecting left nondominant side; F33.2 Major depressive disorder, recurrent severe without psychotic features; I82.4Z2 Acute embolism and thrombosis of unspecified deep veins of left distal lower extremity; Z74.1 Need for assistance with personal care; M17.0 Bilateral primary osteoarthritis of knee; M10.9 Gout, unspecified; K59.00 Constipation, unspecified; N18.9 Chronic kidney disease, unspecified; R13.11 Dysphagia, oral phase; E86.0 Dehydration; F43.20 Adjustment disorder, unspecified; E78.00 Pure hypercholesterolemia, unspecified; D50.9 Iron deficiency anemia, unspecified; E11.22 Type 2 diabetes mellitus with diabetic chronic kidney disease; E11.65 Type 2 diabetes mellitus with hyperglycemia; H53.462 Homonymous bilateral field defects, left side; I12.9 Hypertensive chronic kidney disease with stage 1 through stage 4 chronic kidney disease, or unspecified chronic kidney disease; T38.0X5A Adverse effect of glucocorticoids and synthetic analogues, initial encounter; Z91.199 Patient's noncompliance with other medical treatment and regimen due to unspecified reason; Z91.14 Patient's other noncompliance with medication regimen; Z87.891 Personal history of nicotine dependence; Z86.73 Personal history of transient ischemic attack (TIA), and cerebral infarction without residual deficits; Z82.49 Family history of ischemic heart disease and other diseases of the circulatory system; Z80.0 Family history of malignant neoplasm of digestive organs; Z82.3 Family history of stroke; Z83.3 Family history of diabetes mellitus; Y92.89 Other specified places as the place of occurrence of the external cause; Z79.899 Other long term (current) drug therapy; Z68.24 Body mass index [BMI] 24.0-24.9, adult; R47.1 Dysarthria and anarthria; R74.01 Elevation of levels of liver transaminase levels; R41.89 Other symptoms and signs involving cognitive functions and awareness
CPT/HCPCS: 70450; 80048; 80053; 80061; 82962; 83540; 83550; 83735; 84100; 84550; 85025; 86140; 87081; 90686; 92507; 92508; 92523; 92526; 93970; 93971; 97110; 97112; 97116; 97140; 97150; 97163; 97167; 97530; 97535; 99366; J1650; J1815; J3301; J3490; J7030; Q9967